=== PATIENT | male | born 1965 | race Caucasian/White ===

== ENCOUNTER 2019-07-19 00:01 | Emergency (ER) | payer OTHER, SELFPAY ==
[2019-07-19 00:07] VITALS: BP 175/75; PULSE 64; RESP 16; TEMP 36.2; O2SAT 97
--- NOTE | 2019-07-19 00:41 | ED.LOWEXIN ---
HPI - Extremity Injury (Lower) General Chief Complaint: Extremity Injury, Lower Stated Complaint: l leg redness/swelling. Time Seen by Provider: 07/19/19 00:09 History of Present Illness HPI Narrative: 54 yo morbidly obese male with h/o type 2 DM presents c/o left leg swelling. He says that he has pain and swelling in the left leg that has appeared throughout the day yesterday. He has chronic swelling, but feels that this is worse. He has previously had cellulitis in that leg. No redeness, fever, CP, SOB, trauma. No h/o DVT. Related Data Allergies Allergy/AdvReac Type Severity Reaction Status Date / Time diazepam Allergy Severe Other Verified 05/01/18 21:24 aspirin Allergy Intermediate Rash Verified 05/01/18 21:24 NSAIDS (Non-Steroidal Allergy Intermediate Rash Verified 05/01/18 21:24 Anti-Inflamma erythromycin base Allergy Mild Verified 05/01/18 21:24 latex Allergy Mild Verified 05/01/18 21:24 butorphanol Allergy Unknown Verified 12/21/16 10:31 Cephalosporins Allergy Unknown Verified 05/01/18 21:24 fentanyl Allergy Unknown Rash Verified 05/01/18 21:24 ketorolac Allergy Unknown Verified 12/21/16 10:14 morphine Allergy Unknown Verified 12/21/16 10:14 nalbuphine Allergy Unknown Verified 12/21/16 10:30 orphenadrine Allergy Unknown Verified 12/21/16 10:14 BUTORPHANOL TARTRATE Allergy Mild rash Uncoded 05/01/18 21:24 CEFADROXIL HYDRATE Allergy Mild Uncoded 05/01/18 21:24 KETOROLAC TROMETHAMINE Allergy Mild Uncoded 05/01/18 21:24 NALBUPHINE HCL Allergy Mild rash Uncoded 05/01/18 21:24 ORPHENADRINE CITRATE Allergy Mild Uncoded 05/01/18 21:24 Review of Systems Review of Systems: All systems reviewed & are unremarkable except as noted in HPI and below Constitutional: Constitutional: Denies fever(s) Cardiovascular: Cardiovascular: Denies chest pain Respiratory: Respiratory: Denies cough and Denies dyspnea Gastrointestinal: Gastrointestinal: Denies nausea and Denies vomiting Musculoskeletal: Musculoskeletal: Denies back pain Neurologic: Denies weakness Hematologic/Lymphatic: Hematologic/Lymphatic: Denies easy bleeding and Denies easy bruising PMFSH Past Medical History Medical History (Updated 07/19/19 @ 00:55 by Hever Ro MD) Type 2 diabetes mellitus Family History Family History Other Diabetes mellitus Family history of malignant neoplasm Hypertension Social History Social History Smoking status: Never smoker Alcohol intake: never Gender identity (if verbalized by the patient): Male Exam Const: General: no acute distress, alert and ill appearing chronically Nutritional Appearance: obese morbidly obese Orientation/consciousness: patient oriented x3 HENMT: Head: normal to inspection Resp: Effort & Inspection: normal respiratory effort Auscultation: clear to auscultation bilaterally Cardio: Rate: regular rate Rhythm: regular rhythm Skin: Other: No erythema, induration, warmth of LLE Neuro: General: patient oriented x3 and moves all extremities Extrem: General: edema bilateral Other: Right calf measures 59.5 cm. Left calf measures 59 cm Course Vital Signs Vital signs: Vital Signs Temperature 36.2 C L 07/19/19 00:07 Pulse Rate 64 07/19/19 00:07 Respiratory Rate 16 07/19/19 00:07 Blood Pressure 175/75 H 07/19/19 00:07 Pulse Oximetry 97 07/19/19 00:07 Temperature 36.2 C L 07/19/19 00:07 Pulse Rate 67 07/19/19 00:46 Respiratory Rate 15 07/19/19 00:46 Blood Pressure 142/62 H 07/19/19 00:46 Pulse Oximetry 96 07/19/19 00:46 MDM - Extremity Injury (Lower) MDM Narrative Medical decision making narrative: DVT, Cellulitis, CHF, dependent edema He has no exam findings to indicate cellulitis. Bedside US showed no DVT. He has no systemic symptoms to indicate CHF. His calfs are essentially the same size and given his body habitus
[2019-07-19 00:46] VITALS: BP 142/62; PULSE 67; RESP 15; O2SAT 96
[2019-07-19] MEDS: FUROSEMIDE 20 MG TABLET PO (01:00)
[2019-07-19 01:04] VITALS: BP 142/62; PULSE 63; RESP 17; O2SAT 96
== END 2019-07-19 01:00 | disposition home or self-care (01) ==
PROVIDERS: Emergency Provider Emergency Medicine
DX: R60.0 Localized edema (principal); E11.9 Type 2 diabetes mellitus without complications
CPT/HCPCS: 99283; A9270

== ENCOUNTER 2019-07-22 14:25 | Emergency (ER) | payer OTHER, SELFPAY ==
[2019-07-22] VITALS (12 sets, daily range): BP systolic 169–184; BP diastolic 87–92; PULSE 69; RESP 16; TEMP 36.6; O2SAT 94–98
--- NOTE | ~2019-07-22 | US_ITS ---
EXAMINATION: US venous doppler [facility] EXAM DATE: 07/22/2019 15:33 INDICATION: Left lower extremity pain and swelling. TECHNIQUE: Multiple grayscale, color flow and Doppler images of the left lower extremity deep venous system were obtained and reviewed. There is no prior study for comparison. FINDINGS: The left common femoral, femoral and profunda veins demonstrate normal color flow, respirat ory variation, augmentation and compressibility. Compressibility, color flow confirmed within the le ft popliteal, posterior tibial, peroneal, and greater saphenous veins. IMPRESSION: 1. No left lower extremity deep venous thrombosis. Reviewed, dictated and finalized at location A.
--- NOTE | 2019-07-22 17:24 | ED.LOWEXIN ---
HPI - Extremity Injury (Lower) General Chief Complaint: Extremity Injury, Lower <Sagrario David PA-C - Last Filed: 07/22/19 17:31> Stated Complaint: left leg pain and swelling <Sagrario David PA-C - Last Filed: 07/22/19 17:31> Time Seen by Provider: 07/22/19 14:43 <Sagrario David PA-C - Last Filed: 07/22/19 17:31> Source: patient <Sagrario David PA-C - Last Filed: 07/22/19 17:31> Mode of arrival: ambulatory <SERGE Basilio Last Filed: 07/22/19 17:31> Limitations: no limitations <Sagrario David PA-C - Last Filed: 07/22/19 17:31> History of Present Illness HPI Narrative: Patient presents with chief complaint of pain to his left lower extremity that has worsened over the past few days. Patient has chronic lower extremity edema. He was seen in this emergency department within the last week and given Lasix to help with the swelling. Patient denies any fever, warmth, erythema or warmth to the leg. He denies any chills or other signs of infection. Patient states that he thought his primary care Dr. Ramos at [facility] and told her about his symptoms and was told to come to the emergency department if his symptoms worsen. <Sagrario David PA-C - Last Filed: 07/22/19 17:31> Related Data Allergies/Adverse Reactions: Allergies Allergy/AdvReac Type Severity Reaction Status Date / Time diazepam Allergy Severe Other Verified 05/01/18 21:24 aspirin Allergy Intermediate Rash Verified 05/01/18 21:24 NSAIDS (Non-Steroidal Allergy Intermediate Rash Verified 05/01/18 21:24 Anti-Inflamma erythromycin base Allergy Mild Unknown Verified 07/22/19 14:39 latex Allergy Mild Unknown Verified 07/22/19 14:39 butorphanol Allergy Unknown Unknown Verified 07/22/19 14:39 Cephalosporins Allergy Unknown Unknown Verified 07/22/19 14:39 fentanyl Allergy Unknown Rash Verified 05/01/18 21:24 ketorolac Allergy Unknown Unknown Verified 07/22/19 14:39 morphine Allergy Unknown Unknown Verified 07/22/19 14:39 nalbuphine Allergy Unknown Unknown Verified 07/22/19 14:39 orphenadrine Allergy Unknown Unknown Verified 07/22/19 14:39 BUTORPHANOL TARTRATE Allergy Mild rash Uncoded 05/01/18 21:24 CEFADROXIL HYDRATE Allergy Mild Unknown Uncoded 07/22/19 14:39 KETOROLAC TROMETHAMINE Allergy Mild Unknown Uncoded 07/22/19 14:39 NALBUPHINE HCL Allergy Mild rash Uncoded 05/01/18 21:24 ORPHENADRINE CITRATE Allergy Mild Unknown Uncoded 07/22/19 14:39 <Sagrario David PA-C - Last Filed: 07/22/19 17:31> Review of Systems Review of Systems: Narrative: CONSTITUTIONAL: Denies fever, chills, or sweats. EYES: Denies visual changes, redness, or discharge. ENT: Denies rhinorrhea, congestion, sore throat, or otalgia. CARDIOVASCULAR: Denies chest pain, palpitations, or edema. RESPIRATORY: Denies cough or dyspnea. GASTROINTESTINAL: Denies abdominal pain, nausea, vomiting, or diarrhea. GENITOURINARY: Denies dysuria or hematuria. SKIN: Denies rash or itching. MUSCULOSKELETAL: Reports left leg pain denies back pain, joint pain, or myalgia. NEUROLOGIC: Denies headache, numbness, dizziness, or weakness. PSYCHIATRIC: Denies anxiety or depression. <Sagrario David PA-C - Last Filed: 07/22/19 17:31> PMFSH Past Medical History Medical History: Medical History (Updated 07/22/19 @ 17:30 by Sagrario David PA-C) Type 2 diabetes mellitus <Sagrario David PA-C - Last Filed: 07/22/19 17:31> Social History Social History: Social History Smoking status: Never smoker Alcohol intake: never Gender identity (if verbalized by the patient): Male <Sagrario David PA-C - Last Filed: 07/22/19 17:31> Exam Narrative: Exam Narrative: GENERAL: Well-appearing, well-nourished, and in no acute distress. Obese. Does not appear to be in any discomfort HEAD: Normocephalic, atraumatic. EYES: PERRLA and EOMI. ENT: Nares clear, no rhinorrhea or epistaxis. Mucous membranes moist. Oropharynx
== END 2019-07-22 17:37 | disposition home or self-care (01) ==
PROVIDERS: Emergency Provider Emergency Medicine
DX: R60.0 Localized edema (principal); E11.9 Type 2 diabetes mellitus without complications; Z79.82 Long term (current) use of aspirin
CPT/HCPCS: 93971; 99284

== ENCOUNTER 2019-08-06 22:10 | Emergency (ER) | payer OTHER, SELFPAY ==
--- NOTE | ~2019-08-06 | CT_ITS ---
EXAMINATION: CT abdomen pelvis w con DATE: 08/07/2019 00:52 INDICATION: Abdominal pain. Nausea and vomiting. Diarrhea. TECHNIQUE: Computed tomography (CT) of the abdomen and pelvis was performed with 100 mL Omnipaque 350 intravenous contrast. Automated exposure control and iterative reconstruction technique were employe d. The dose-length product was 1683.95 mGy-cm. COMPARISON: CT abdomen and pelvis 10/14/2017 FINDINGS: The visualized portions of the lung bases demonstrate a stable 7 mm nodule in right lower l obe, likely benign. There is a new 8 mm part solid nodule in left lower lobe. No pleural effusion. Th e heart size is normal. No pericardial effusion. The liver and spleen are normal. There are changes o f cholecystectomy. The pancreas, adrenal glands, and kidneys are normal. There are no dilated loops o f bowel. The appendix is not visualized. There are no pathologically enlarged lymph nodes. There is n o free intraperitoneal fluid. There is mild thoracolumbar spondylosis. IMPRESSION: 1. New 8 mm part-solid nodule in left lower lobe, probably benign. Noncontrast low-dose chest CT is r ecommended in 6 months. Reviewed, dictated and finalized at location A. IMPRESSION: 1. New 8 mm part-solid nodule in left lower lobe, probably benign. Noncontrast low-dose chest CT is recommended in 6 months.
[2019-08-06 22:12] VITALS: BP 154/67; PULSE 94; RESP 18; TEMP 36.4; O2SAT 98
[2019-08-06 22:53] LABS: Basophils Percent Auto 0.6 % (0.2-1.2); Eosinophils Absolute Auto 0.1 K/mm3 (0-0.3); Eosinophils Percent Auto 1.5 % (0-4.4); Hematocrit 41.5 % (42.0-52.0); Hemoglobin 13.3 g/dL (14.0-18.0); Immature Granulocyte Absolute 0.03 K/mm3 (0.00-0.031); Immature Granulocyte Percent A 0.4 % (0-0.5); Lymphocytes Absolute Auto 1.94 K/mm3 (0.9-3.2); Lymphocytes Percent Auto 27.1 % (18.3-44.2); Mean Corpuscular Hemoglobin 27.4 pg (26-34); Mean Corpuscular Volume 85.6 fl (80-100); Mean Platelet Volume 10.7 fl (7.4-10.4); Monocytes Absolute Auto 0.5 K/mm3 (0.1-0.6); Monocytes Percent Auto 6.6 % (2.6-8.5); Neutrophils Absolute Auto 4.6 K/mm3 (1.3-6.7); Neutrophils Percent Auto 63.8 % (45.5-73.1); Platelet Count Result 282 k/mm3 (150-375); Red Blood Count 4.85 M/mm3 (4.6-6.20); Red Cell Distribution Width 13.2 % (11.5-14.5); White Blood Count 7.2 K/mm3 (4.5-10.0)
[2019-08-06 23:00] LABS: Add Urine Microscopic? YES; Appearance Urine Clear (Clear); Bilirubin Urine Negative (Negative); Blood Urine Negative (Negative); Color Urine Yellow (Yellow); Glucose Urine UA 3+ mg/dL (Negative); Ketones Urine Negative (Negative); Leukocyte Esterase Ur Negative LEU/UL (Negative); Nitrate Urine Negative (Negative); Protein Urine Negative (Negative); RBC Urine 0-2 /hpf (0-2); Specific Grav Ur 1.027 (1.001-1.035); Squamous Epithelial Cell Urine Occasional /hpf (Few); Urobilinogen Urine Negative mg/dL (<2.0); WBC Urine 0-3 /hpf
[2019-08-06 23:03] LABS: Alanine Aminotransferase 27 U/L (4-50); Albumin Level 4.2 g/dL (3.5-5.1); Alkaline Phosphatase 118 U/L (38-126); Aspartate Amino Transferase 26 U/L (17-59); Bilirubin,Total 0.9 mg/dL (0.2-1.3); Blood Urea Nitrogen 14 mg/dL (9-20); Calcium 8.7 mg/dL (8.4-10.2); Carbon Dioxide 30 mmol/L (22-30); Chloride 92 mmol/L (98-107); Estimated CRCL calculation 188 ml/min; Estimated Glomerular Filt Rate > 60; Glucose 367 mg/dL (75-110); Lipase 177 U/L (23-300); Potassium 4.4 mmol/L (3.4-5.0); Sodium 131 mmol/L (137-145)
[2019-08-06 23:51] VITALS: BP 141/72; PULSE 91; RESP 16; TEMP 36.8; O2SAT 95
--- NOTE | 2019-08-07 00:24 | ED.ABDPAIN ---
HPI - Abdominal Pain General Chief Complaint: Abdominal Pain Stated Complaint: PANCREATIC PROBLEMS Time Seen by Provider: 08/06/19 23:56 Source: patient Mode of arrival: ambulatory Limitations: no limitations History of Present Illness HPI narrative: This patient is a 54 yo male who presents with c/o mid abdominal pain . He states his pain started today yesterday at 5 pm. He reports his pain is localized . He has associated nausea and diarrhea with pain. He has taken bentyl without relief of his pain. MD elicited complaint: abdominal pain Related Data Home Medications Medication Instructions Recorded Confirmed albuterol sulfate INHALATION 08/06/19 allopurinol 08/06/19 08/06/19 atorvastatin 08/06/19 citalopram mg 08/06/19 cyclobenzaprine mg 08/06/19 dicyclomine mg 08/06/19 hydrocodone-acetaminophen 08/06/19 insulin lispro [Admelog SoloStar unit SUBCUT 08/06/19 U-100 Insulin] lisinopril 08/06/19 metformin mg 08/06/19 Allergies Allergy/AdvReac Type Severity Reaction Status Date / Time diazepam Allergy Severe Other Verified 08/06/19 22:23 aspirin Allergy Intermediate Rash Verified 08/06/19 22:23 NSAIDS (Non-Steroidal Allergy Intermediate Rash Verified 08/06/19 22:23 Anti-Inflamma erythromycin base Allergy Mild Unknown Verified 08/06/19 22:23 latex Allergy Mild Unknown Verified 08/06/19 22:23 butorphanol Allergy Unknown Unknown Verified 08/06/19 22:23 Cephalosporins Allergy Unknown Unknown Verified 08/06/19 22:23 fentanyl Allergy Unknown Rash Verified 08/06/19 22:23 ketorolac Allergy Unknown Unknown Verified 08/06/19 22:23 morphine Allergy Unknown Unknown Verified 08/06/19 22:23 nalbuphine Allergy Unknown Unknown Verified 08/06/19 22:23 orphenadrine Allergy Unknown Unknown Verified 08/06/19 22:23 BUTORPHANOL TARTRATE Allergy Mild rash Uncoded 08/06/19 22:23 CEFADROXIL HYDRATE Allergy Mild Unknown Uncoded 08/06/19 22:23 KETOROLAC TROMETHAMINE Allergy Mild Unknown Uncoded 08/06/19 22:23 NALBUPHINE HCL Allergy Mild rash Uncoded 08/06/19 22:23 ORPHENADRINE CITRATE Allergy Mild Unknown Uncoded 08/06/19 22:23 Review of Systems Review of Systems: All systems reviewed & are unremarkable except as noted in HPI and below Constitutional: Constitutional: Denies chills and Denies fever(s) Cardiovascular: Cardiovascular: Denies chest pain Respiratory: Respiratory: Denies cough Gastrointestinal: Gastrointestinal: Reports abdominal pain, Reports diarrhea and Reports nausea Genitourinary: Genitourinary: Denies hematuria, Denies dysuria and Denies urinary frequency [facility] Past Medical History Medical History (Updated 08/07/19 @ 01:52 by Tea Strange MD) Type 2 diabetes mellitus Surgical History Surgical History (Updated 08/07/19 @ 00:26 by Tea Strange MD) Hx of cholecystectomy Social History Social History Smoking status: Never smoker Alcohol intake: never Gender identity (if verbalized by the patient): Male Exam Narrative: Exam Narrative: GENERAL: Well-appearing, well-nourished, and in no acute distress. HEAD: Normocephalic, atraumatic EYES: PERRLA and EOMI, conjunctiva clear without discharge THROAT:Mucous membranes moist, Oropharynx normal without erythema, exudate, peritonsillar swelling or fluctuance NECK: Supple, without lymphadenopathy or mass RESPIRATORY: No respiratory distress, Airway patent, Respirations non-labored, Clear to auscultation without rales, rhonchi or wheeze HEART: Regular rate and rhythm. No murmur heard. Normal peripheral pulses. ABDOMEN: Soft, mid abdomen tenderness with guarding at location, nondistended, normal active bowel sounds. No masses. EXTREMITIES: No edema, normal strength with full range of motion. SKIN: Warm, dry, normal color without rash NEURO: Alert and oriented x3. CN 2-12 grossly intact. No focal deficits. PSYCH: Normal mood and affect. Const: General: alert N
--- NOTE | 2019-08-07 01:07 | PC.NURSE ---
Patient states he is still hurting and states I usually get 1mg-2mg Dilaudid to help with the pain. SAGRARIO Strange was notified.
[2019-08-07 01:13] VITALS: BP 146/77; PULSE 87; RESP 14; O2SAT 98
[2019-08-07 02:10] VITALS: BP 131/75; PULSE 90; RESP 14; TEMP 36.3; O2SAT 95
== END 2019-08-07 02:13 | disposition home or self-care (01) ==
PROVIDERS: Emergency Provider General Practice
DX: R10.12 Left upper quadrant pain (principal); E11.65 Type 2 diabetes mellitus with hyperglycemia; Z79.84 Long term (current) use of oral hypoglycemic drugs; Z79.4 Long term (current) use of insulin
CPT/HCPCS: 36415; 74177; 80053; 81001; 83690; 85025; 99284; Q9967

== ENCOUNTER 2019-10-22 01:03 | Emergency (ER) | payer OTHER, SELFPAY ==
--- NOTE | 2019-10-22 01:07 | ED.LOWEXIN ---
HPI - Extremity Injury (Lower) General Chief Complaint: Extremity Injury, Lower Stated Complaint: Leg pain Time Seen by Provider: 10/22/19 01:07 History of Present Illness HPI Narrative: He presents c/o burning bilateral lower leg pain. He says that this started earlier this evening. He has known neuropathy and chronic pain issues. He reports that he took his home pain medications which did not help and the only thing that helps the pain is a shot of dilaudid. Related Data Home Medications Medication Instructions Recorded Confirmed albuterol sulfate INHALATION 08/06/19 allopurinol 08/06/19 08/06/19 atorvastatin 08/06/19 citalopram mg 08/06/19 cyclobenzaprine mg 08/06/19 dicyclomine mg 08/06/19 hydrocodone-acetaminophen 08/06/19 insulin lispro [Admelog SoloStar unit SUBCUT 08/06/19 U-100 Insulin] lisinopril 08/06/19 metformin mg 08/06/19 Allergies Allergy/AdvReac Type Severity Reaction Status Date / Time diazepam Allergy Severe Other Verified 08/06/19 22:23 aspirin Allergy Intermediate Rash Verified 08/06/19 22:23 NSAIDS (Non-Steroidal Allergy Intermediate Rash Verified 08/06/19 22:23 Anti-Inflamma erythromycin base Allergy Mild Unknown Verified 08/06/19 22:23 latex Allergy Mild Unknown Verified 08/06/19 22:23 butorphanol Allergy Unknown Unknown Verified 08/06/19 22:23 Cephalosporins Allergy Unknown Unknown Verified 08/06/19 22:23 fentanyl Allergy Unknown Rash Verified 08/06/19 22:23 ketorolac Allergy Unknown Unknown Verified 08/06/19 22:23 morphine Allergy Unknown Unknown Verified 08/06/19 22:23 nalbuphine Allergy Unknown Unknown Verified 08/06/19 22:23 orphenadrine Allergy Unknown Unknown Verified 08/06/19 22:23 BUTORPHANOL TARTRATE Allergy Mild rash Uncoded 08/06/19 22:23 CEFADROXIL HYDRATE Allergy Mild Unknown Uncoded 08/06/19 22:23 KETOROLAC TROMETHAMINE Allergy Mild Unknown Uncoded 08/06/19 22:23 NALBUPHINE HCL Allergy Mild rash Uncoded 08/06/19 22:23 ORPHENADRINE CITRATE Allergy Mild Unknown Uncoded 08/06/19 22:23 Review of Systems Review of Systems: All systems reviewed & are unremarkable except as noted in HPI and below PMFSH Past Medical History Medical History Type 2 diabetes mellitus Surgical History Surgical History Hx of cholecystectomy Social History Social History Smoking status: Never smoker Alcohol intake: never Gender identity (if verbalized by the patient): Male Exam Const: General: no acute distress and alert Nutritional Appearance: obese Orientation/consciousness: patient oriented x3 HENMT: Head: normal to inspection Resp: Effort & Inspection: normal respiratory effort Auscultation: clear to auscultation bilaterally Cardio: Rate: regular rate Rhythm: regular rhythm Skin: General skin exam: normal color Rashes: no rashes Wounds: no wounds Neuro: General: patient oriented x3 and moves all extremities Speech: normal speech Extrem: General: no edema Course Course Emergency Course: I discussed him with the physician on-call for his PCP. They have no specific recommendations for treatment. they will get in touch with him. Vital Signs Vital signs: Vital Signs Temperature 36.7 C 10/22/19 01:11 Pulse Rate 88 10/22/19 01:11 Respiratory Rate 18 10/22/19 01:11 Blood Pressure 161/90 H 10/22/19 01:11 Pulse Oximetry 100 10/22/19 01:11 Temperature 36.7 C 10/22/19 01:11 Pulse Rate 73 10/22/19 03:27 Respiratory Rate 18 10/22/19 03:27 Blood Pressure 151/82 H 10/22/19 03:27 Pulse Oximetry 95 10/22/19 03:27 Discharge Plan Discharge Clinical Impression: Neuropathic pain, leg, bilateral Patient Disposition: Home, Self-Care Condition: Stable Instructions: Peripheral Neuropathy (ED) Prescriptions: No Action cyclobenzaprine 10 mg tablet
[2019-10-22 01:11] VITALS: BP 161/90; PULSE 88; RESP 18; TEMP 36.7; O2SAT 100
[2019-10-22 03:27] VITALS: BP 151/82; PULSE 73; RESP 18; O2SAT 95
== END 2019-10-22 02:57 | disposition home or self-care (01) ==
PROVIDERS: Emergency Provider Emergency Medicine
DX: E11.40 Type 2 diabetes mellitus with diabetic neuropathy, unspecified (principal); Z79.4 Long term (current) use of insulin; Z79.84 Long term (current) use of oral hypoglycemic drugs
CPT/HCPCS: 99282

== ENCOUNTER 2019-10-24 15:34 | Emergency (ER) | payer OTHER, SELFPAY ==
--- NOTE | ~2019-10-24 | CT_ITS ---
EXAMINATION: CT lumbar spine wo con DATE: 10/24/2019 18:03 INDICATION: Low back pain after fall TECHNIQUE: Computed tomography (CT) of the lumbar spine was performed without intravenous contrast. T he dose-length product was 1567.85 mGy-cm. Automated exposure control and iterative reconstruction te kileyque were employed. COMPARISON: None FINDINGS: Vertebral body heights are preserved. Normal lumbar lordosis. There is mild lower lumbar fa cet degenerative change. No acute fracture or traumatic malalignment. Sacrum is unremarkable. No sign ificant paraspinal soft tissue abnormality. Mild disc narrowing at L5-S1. IMPRESSION: 1. No acute abnormality of the lumbar spine. Reviewed, dictated and finalized at location A.
--- NOTE | ~2019-10-24 | XR_ITS ---
XR shoulder RT min 2V 10/24/2019 17:51 Indication: Right shoulder pain Procedure: 6 views right shoulder Comparison: No prior studies for comparison. Findings: There is mild polyarticular osteoarthritis. No fracture or traumatic malalignment. No focal soft tissue abnormality. Visualized lung parenchyma unremarkable. Impression: 1: Mild polyarticular osteoarthritis of the right shoulder. Reviewed, dictated and finalized at location A. Impression: 1: Mild polyarticular osteoarthritis of the right shoulder.
[2019-10-24 15:38] VITALS: BP 113/58; PULSE 76; RESP 20; TEMP 36.8; O2SAT 99
--- NOTE | 2019-10-24 17:28 | ED.FALL ---
HPI - Fall General Chief Complaint: Fall <Deepika Salazar PA-C - Last Filed: 10/24/19 19:08> Stated Complaint: fall, shoulder, back apin <Deepika Salazar PA-C - Last Filed: 10/24/19 19:08> Time Seen by Provider: 10/24/19 16:46 <Deepika Salazar PA-C - Last Filed: 10/24/19 19:08> Source: patient <SERGE Hu Last Filed: 10/24/19 19:08> Mode of arrival: ambulatory <SERGE Hu Last Filed: 10/24/19 19:08> Limitations: no limitations <SERGE Hu Last Filed: 10/24/19 19:08> History of Present Illness HPI Narrative: This is a 54-year-old male that presents to the emergency department after a fall yesterday. Reports he was walking into his doctor's office, and tripped and fell forward and caught himself with his wrists. Reports then landing on his side. Reports since he has had right shoulder and low back pain. Worse with movement and relieved with rest. Took his home pain medication with little relief. Denies saddle anesthesia, bowel/bladder incontinence, or numbness. <Deepika Salazar PA-C - Last Filed: 10/24/19 19:08> Related Data Home Medications: Home Medications Medication Instructions Recorded Confirmed allopurinol 08/06/19 08/06/19 atorvastatin 08/06/19 citalopram mg 08/06/19 cyclobenzaprine mg 08/06/19 dicyclomine mg 08/06/19 hydrocodone-acetaminophen 08/06/19 insulin lispro [Admelog SoloStar unit SUBCUT 08/06/19 U-100 Insulin] lisinopril 08/06/19 metformin mg 08/06/19 <SERGE Hu Last Filed: 10/24/19 19:08> Allergies/Adverse Reactions: Allergies Allergy/AdvReac Type Severity Reaction Status Date / Time diazepam Allergy Severe Other Verified 10/24/19 16:41 aspirin Allergy Intermediate Rash Verified 10/24/19 16:41 NSAIDS (Non-Steroidal Allergy Intermediate Rash Verified 10/24/19 16:41 Anti-Inflamma erythromycin base Allergy Mild Unknown Verified 10/24/19 16:41 latex Allergy Mild Unknown Verified 10/24/19 16:41 butorphanol Allergy Unknown Unknown Verified 10/24/19 16:41 Cephalosporins Allergy Unknown Unknown Verified 10/24/19 16:41 fentanyl Allergy Unknown Rash Verified 10/24/19 16:41 ketorolac Allergy Unknown Unknown Verified 10/24/19 16:41 morphine Allergy Unknown Unknown Verified 10/24/19 16:41 nalbuphine Allergy Unknown Unknown Verified 10/24/19 16:41 orphenadrine Allergy Unknown Unknown Verified 10/24/19 16:41 BUTORPHANOL TARTRATE Allergy Mild rash Uncoded 08/06/19 22:23 CEFADROXIL HYDRATE Allergy Mild Unknown Uncoded 08/06/19 22:23 KETOROLAC TROMETHAMINE Allergy Mild Unknown Uncoded 08/06/19 22:23 NALBUPHINE HCL Allergy Mild rash Uncoded 08/06/19 22:23 ORPHENADRINE CITRATE Allergy Mild Unknown Uncoded 08/06/19 22:23 <Deepika Salazar PA-C - Last Filed: 10/24/19 19:08> Review of Systems Review of Systems: Narrative: CONSTITUTIONAL: Denies fever EYES: Denies visual changes GASTROINTESTINAL: Denies vomiting MUSCULOSKELETAL: Reports back pain, joint pain, and myalgia. NEUROLOGIC: Denies numbness, or weakness. <Deepika Salazar PA-C - Last Filed: 10/24/19 19:08> All systems reviewed & are unremarkable except as noted in HPI and below <Deepika Salazar PA-C - Last Filed: 10/24/19 19:08> [facility] Past Medical History Medical History: Medical History (Updated 10/24/19 @ 19:03 by Deepika Salazar PA-C) History of gout History of hyperlipidemia History of hypertension Type 2 diabetes mellitus <Deepika Salazar PA-C - Last Filed: 10/24/19 19:08> Surgical History Surgical History: Surgical History Hx of cholecystectomy <Deepika Salazar PA-C - Last Filed: 10/24/19 19:08> Social History Social History: Social History Smoking status: Never smoker Alcohol intake: never Gender identity (if verbalized by the patient): Male <Deepika Salazar PA-C
--- NOTE | 2019-10-24 17:46 | PC.NURSE ---
To xray at this time
[2019-10-24 19:22] VITALS: BP 148/100; PULSE 64; RESP 16; TEMP 36.6; O2SAT 97
== END 2019-10-24 19:23 | disposition home or self-care (01) ==
PROVIDERS: Emergency Provider Emergency Medicine
DX: S39.92XA Unspecified injury of lower back, initial encounter (principal); M25.511 Pain in right shoulder; M10.9 Gout, unspecified; E78.5 Hyperlipidemia, unspecified; I10 Essential (primary) hypertension; E11.9 Type 2 diabetes mellitus without complications; M19.011 Primary osteoarthritis, right shoulder; Z79.84 Long term (current) use of oral hypoglycemic drugs; Z79.4 Long term (current) use of insulin; W01.0XXA Fall on same level from slipping, tripping and stumbling without subsequent striking against object, initial encounter
CPT/HCPCS: 72131; 73030; 96372; 99284; J1170

== ENCOUNTER 2019-12-28 15:10 | Emergency (ER) | payer OTHER, SELFPAY ==
--- NOTE | ~2019-12-28 | XR_ITS ---
EXAMINATION: XR hip RT 2V w AP pelvis DATE: 12/28/2019 15:51 INDICATION: Right hip pain TECHNIQUE: Anteroposterior view of the pelvis and anteroposterior and frog-leg lateral views of the r ight hip were obtained. COMPARISON: None. FINDINGS: Evaluation is somewhat limited by underpenetration with poor contrast resulting from portable techniq ue and patient body habitus. Alignment is normal. No evident fracture. Mild bilateral hip osteoarthri tis. IMPRESSION: 1. Mild bilateral hip osteoarthritis. No acute osseous abnormality although assessment of fine bone d etail is limited due to patient body habitus. Reviewed, dictated and finalized at location A. IMPRESSION: 1. Mild bilateral hip osteoarthritis. No acute osseous abnormality although ass essment of fine bone detail is limited due to patient body habitus.
[2019-12-28 15:18] VITALS: BP 143/72; PULSE 76; RESP 20; TEMP 36.5; O2SAT 100
--- NOTE | 2019-12-28 15:43 | ED.LOWEXIN ---
HPI - Extremity Injury (Lower) General Chief Complaint: Extremity Injury, Lower Stated Complaint: hip pain Time Seen by Provider: 12/28/19 15:24 History of Present Illness HPI Narrative: 54 yo male with h/o chronic pain presnets with right hip pain. He reports that he has severe pain in the right hip since this morning that is preventing him from being able to walk. No trauma. Denies any other symptoms. Related Data Home Medications Medication Instructions Recorded Confirmed allopurinol 08/06/19 08/06/19 atorvastatin 08/06/19 citalopram mg 08/06/19 cyclobenzaprine mg 08/06/19 dicyclomine mg 08/06/19 hydrocodone-acetaminophen 08/06/19 insulin lispro [Admelog SoloStar unit SUBCUT 08/06/19 U-100 Insulin] lisinopril 08/06/19 metformin mg 08/06/19 Allergies Allergy/AdvReac Type Severity Reaction Status Date / Time diazepam Allergy Severe Other Verified 12/28/19 15:23 aspirin Allergy Intermediate Rash Verified 12/28/19 15:23 NSAIDS (Non-Steroidal Allergy Intermediate Rash Verified 12/28/19 15:23 Anti-Inflamma erythromycin base Allergy Mild Unknown Verified 12/28/19 15:23 latex Allergy Mild Unknown Verified 12/28/19 15:23 butorphanol Allergy Unknown Unknown Verified 12/28/19 15:23 Cephalosporins Allergy Unknown Unknown Verified 12/28/19 15:23 fentanyl Allergy Unknown Rash Verified 12/28/19 15:23 ketorolac Allergy Unknown Unknown Verified 12/28/19 15:23 morphine Allergy Unknown Unknown Verified 12/28/19 15:23 nalbuphine Allergy Unknown Unknown Verified 12/28/19 15:23 orphenadrine Allergy Unknown Unknown Verified 12/28/19 15:23 Review of Systems Review of Systems: All systems reviewed & are unremarkable except as noted in HPI and below PMFSH Past Medical History Medical History History of gout History of hyperlipidemia History of hypertension Type 2 diabetes mellitus Surgical History Surgical History Hx of cholecystectomy Family History Family History Other Diabetes mellitus Family history of malignant neoplasm Hypertension Social History Social History Smoking status: Never smoker Alcohol intake: never Gender identity (if verbalized by the patient): Male Exam Const: General: no acute distress and alert Nutritional Appearance: obese Orientation/consciousness: patient oriented x3 HENMT: Head: normal to inspection Resp: Effort & Inspection: normal respiratory effort Auscultation: clear to auscultation bilaterally Cardio: Rate: regular rate Rhythm: regular rhythm Skin: General skin exam: normal color Neuro: General: patient oriented x3, moves all extremities and CN's II-XI intact bilaterally Speech: normal speech Gait exam (Neuro): Normal gait present Extrem: General: normal to inspection Other: Grossly normal extremity exm Course Vital Signs Vital signs: Vital Signs Temperature 36.5 C 12/28/19 15:18 Pulse Rate 76 12/28/19 15:18 Respiratory Rate 20 12/28/19 15:18 Blood Pressure 143/72 H 12/28/19 15:18 Pulse Oximetry 100 12/28/19 15:18 Temperature 36.5 C 12/28/19 15:18 Pulse Rate 80 12/28/19 17:28 Respiratory Rate 20 12/28/19 17:28 Blood Pressure 142/67 H 12/28/19 17:28 Pulse Oximetry 99 12/28/19 17:28 MDM - Extremity Injury (Lower) MDM Narrative Medical decision making narrative: Negative x-rays. History of opioid abuse and refusing to walk due to pain. Allergies listed to most non-opioid analgesics. I will given single dose of ketamine. Pain completely resolved and ambulating without difficulty. Imaging Data Radiologist's impression: ITS Impressions Hip/Pelvis X-Ray 12/28/19 15:57 IMPRESSION: 1. Mild bilateral hip osteoarthritis. No acute osseous abnormality although assessment of fine bon
[2019-12-28] MEDS: KETAMINE HCL (*CRX) 500 MG/10 ML VIAL 100 MG IM (16:17)
[2019-12-28 17:28] VITALS: BP 142/67; PULSE 80; RESP 20; O2SAT 99
[2019-12-28] MEDS: ONDANSETRON HCL ODT 4 MG TABLET PO (17:28)
== END 2019-12-28 17:30 | disposition home or self-care (01) ==
PROVIDERS: Emergency Provider Emergency Medicine
DX: M25.551 Pain in right hip (principal); M10.9 Gout, unspecified; E78.5 Hyperlipidemia, unspecified; I10 Essential (primary) hypertension; E11.9 Type 2 diabetes mellitus without complications; Z79.4 Long term (current) use of insulin; M16.0 Bilateral primary osteoarthritis of hip
CPT/HCPCS: 73140; 73502; 96372; 99283; A9270

== ENCOUNTER 2020-02-28 20:41 | Emergency (ER) | payer OTHER, SELFPAY ==
--- NOTE | ~2020-02-28 | XR_ITS ---
EXAMINATION: XR chest 1V portable DATE: 02/28/2020 23:25 INDICATION: Pneumonia 2 weeks prior presenting with shortness of breath and cough TECHNIQUE: frontal view of the chest was obtained. COMPARISON: Chest radiograph dated 05/01/2018 FINDINGS: The lungs are clear with no focal airspace opacities, pulmonary edema, pleural effusion or pneumothor ax. The cardiomediastinal silhouette is normal. Visualized bones and soft tissues are unremarkable. IMPRESSION: 1. No acute cardiopulmonary disease. Reviewed, dictated and finalized at location A. 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
--- NOTE | 2020-02-28 20:45 | PC.NURSE ---
mothers name lynsey [phone]
[2020-02-28 21:13] VITALS: BP 149/69; PULSE 77; RESP 18; TEMP 36.2; O2SAT 98
--- NOTE | 2020-02-28 23:35 | ED.URI ---
HPI - URI/Sore Throat General Chief Complaint: Upper Respiratory Infection Stated Complaint: headache, sob, nausea Time Seen by Provider: 02/28/20 23:15 History of Present Illness HPI Narrative: 54 yo male w/ DM, HTN, gout, chronic pain presents to the ED for URI. He says that he has had a TERAN for a few days. Now accompanied by cough, and SOB. He thinks that he may have been exposed to COVID-19 at [facility]. Related Data Home Medications Medication Instructions Recorded Confirmed allopurinol 08/06/19 08/06/19 atorvastatin 08/06/19 citalopram mg 08/06/19 cyclobenzaprine mg 08/06/19 dicyclomine mg 08/06/19 hydrocodone-acetaminophen 08/06/19 insulin lispro [Admelog SoloStar unit SUBCUT 08/06/19 U-100 Insulin] lisinopril 08/06/19 metformin mg 08/06/19 Allergies Allergy/AdvReac Type Severity Reaction Status Date / Time diazepam Allergy Severe Other Verified 02/28/20 20:49 aspirin Allergy Intermediate Rash Verified 02/28/20 20:49 NSAIDS (Non-Steroidal Allergy Intermediate Rash Verified 02/28/20 20:49 Anti-Inflamma erythromycin base Allergy Mild Unknown Verified 02/28/20 20:49 latex Allergy Mild Unknown Verified 02/28/20 20:49 butorphanol Allergy Unknown Unknown Verified 02/28/20 20:49 Cephalosporins Allergy Unknown Unknown Verified 02/28/20 20:49 fentanyl Allergy Unknown Rash Verified 02/28/20 20:49 ketorolac Allergy Unknown Unknown Verified 02/28/20 20:49 morphine Allergy Unknown Unknown Verified 02/28/20 20:49 nalbuphine Allergy Unknown Unknown Verified 02/28/20 20:49 orphenadrine Allergy Unknown Unknown Verified 02/28/20 20:49 Review of Systems Review of Systems: All systems reviewed & are unremarkable except as noted in HPI and below Constitutional: Constitutional: Denies fever(s) ENT: Denies sore throat Cardiovascular: Cardiovascular: Denies chest pain Respiratory: Respiratory: Reports cough and Reports dyspnea Gastrointestinal: Gastrointestinal: Denies abdominal pain and Denies nausea Genitourinary: Genitourinary: Denies dysuria Musculoskeletal: Musculoskeletal: Reports back pain Neurologic: Reports headache(s) PMFSH Past Medical History Medical History History of gout History of hyperlipidemia History of hypertension Type 2 diabetes mellitus Surgical History Surgical History Hx of cholecystectomy Family History Family History Other Diabetes mellitus Family history of malignant neoplasm Hypertension Social History Social History Smoking status: Never smoker Alcohol intake: never Gender identity (if verbalized by the patient): Male Exam Const: General: alert Nutritional Appearance: obese Orientation/consciousness: patient oriented x3 HENMT: Head: normal to inspection Ears: TM's normal bilaterally Mouth: Yes moist mucous membranes Eyes: Conjunctivae: conjunctivae normal Pupils: Equal, round and reactive pupils present EOM: EOMs intact bilaterally Neck: Neck: normal visual inspection Resp: Effort & Inspection: normal respiratory effort Auscultation: clear to auscultation bilaterally Cardio: Rate: regular rate Rhythm: regular rhythm GI: GI Palp: Yes Soft to palpation and No Tenderness to palpation present (GI) Skin: Other: Stasis changes of BLE Neuro: General: patient oriented x3, moves all extremities, no focal motor deficits and CN's II-XI intact bilaterally Speech: normal speech Gait exam (Neuro): Normal gait present Extrem: General: edema bilateral (1+) Course Vital Signs Vital signs: Vital Signs Temperature 36.2 C L 02/28/20 21:13 Pulse Rate 77 02/28/20 21:13 Respiratory Rate 18 02/28/20 21:13 Blood Pressure 149/69 H 02/28/20 21:13 Pulse Oximetry 98 02/28/20 21:13 Temperature 36.2 C
[2020-02-29 00:11] LABS: Basophils Percent Auto 0.4 % (0.2-1.2); Eosinophils Absolute Auto 0.1 K/mm3 (0-0.3); Eosinophils Percent Auto 2.4 % (0-4.4); Hematocrit 39.6 % (42.0-52.0); Hemoglobin 12.6 g/dL (14.0-18.0); Immature Granulocyte Absolute 0.01 K/mm3 (0.00-0.031); Immature Granulocyte Percent A 0.2 % (0-0.5); Lymphocytes Absolute Auto 1.62 K/mm3 (0.9-3.2); Lymphocytes Percent Auto 30.2 % (18.3-44.2); Mean Corpuscular HGB Conc 31.8 g/dl (32-36); Mean Corpuscular Hemoglobin 26.1 pg (26-34); Mean Corpuscular Volume 82.2 fl (80-100); Mean Platelet Volume 10.1 fl (7.4-10.4); Monocytes Absolute Auto 0.4 K/mm3 (0.1-0.6); Monocytes Percent Auto 7.5 % (2.6-8.5); Neutrophils Absolute Auto 3.2 K/mm3 (1.3-6.7); Neutrophils Percent Auto 59.3 % (45.5-73.1); Platelet Count Result 253 k/mm3 (150-375); Red Blood Count 4.82 M/mm3 (4.6-6.20); Red Cell Distribution Width 12.8 % (11.5-14.5); White Blood Count 5.4 K/mm3 (4.5-10.0)
[2020-02-29 00:26] LABS: Alanine Aminotransferase 26 U/L (4-50); Alkaline Phosphatase 86 U/L (38-126); Anion Gap 8 mmol/L (8-16); Aspartate Amino Transferase 27 U/L (17-59); Blood Urea Nitrogen 14 mg/dL (9-20); Calcium 9.4 mg/dL (8.4-10.2); Carbon Dioxide 30 mmol/L (22-30); Chloride 95 mmol/L (98-107); Estimated CRCL calculation 220 ml/min; Estimated Glomerular Filt Rate > 60; Glucose 328 mg/dL (75-110); Sodium 133 mmol/L (137-145)
[2020-02-29 00:46] VITALS: BP 137/62; PULSE 84; RESP 18; O2SAT 98
== END 2020-02-29 00:47 | disposition home or self-care (01) ==
PROVIDERS: Emergency Provider Emergency Medicine
DX: J40 Bronchitis, not specified as acute or chronic (principal); E11.9 Type 2 diabetes mellitus without complications; Z79.4 Long term (current) use of insulin; M10.9 Gout, unspecified; E78.5 Hyperlipidemia, unspecified; I10 Essential (primary) hypertension
CPT/HCPCS: 36415; 71045; 80053; 85025; 99283

== ENCOUNTER 2020-04-15 18:44 | Emergency (ER) | payer OTHER, SELFPAY ==
[2020-04-15 18:47] VITALS: BP 183/67; PULSE 77; RESP 18; TEMP 36.5; O2SAT 100
--- NOTE | 2020-04-15 19:54 | ED.BACK ---
HPI - Back Pain/Injury General Chief Complaint: Back Pain/Injury Stated Complaint: back pain Time Seen by Provider: 04/15/20 19:47 Source: patient Mode of arrival: ambulatory Limitations: no limitations History of Present Illness HPI Narrative: A 54-year-old male [facility] with complaints of an exacerbation of low back pain. Patient does state that he has had some low back issues is seeking something for his pain. He states at home he is taking 10 mg hydrocodone. These are prescribed by his pain management doctor. He states that his pain management doctor said it is okay with me if you go to the ER get more pain meds . He does note that he usually just comes and receives a shot goes on his way. Related Data Home Medications Medication Instructions Recorded Confirmed allopurinol 08/06/19 08/06/19 atorvastatin 08/06/19 citalopram mg 08/06/19 cyclobenzaprine mg 08/06/19 dicyclomine mg 08/06/19 hydrocodone-acetaminophen 08/06/19 insulin lispro [Admelog SoloStar unit SUBCUT 08/06/19 U-100 Insulin] lisinopril 08/06/19 metformin mg 08/06/19 Allergies Allergy/AdvReac Type Severity Reaction Status Date / Time diazepam Allergy Severe Other Verified 02/28/20 20:49 aspirin Allergy Intermediate Rash Verified 02/28/20 20:49 NSAIDS (Non-Steroidal Allergy Intermediate Rash Verified 02/28/20 20:49 Anti-Inflamma erythromycin base Allergy Mild Unknown Verified 02/28/20 20:49 latex Allergy Mild Unknown Verified 02/28/20 20:49 butorphanol Allergy Unknown Unknown Verified 02/28/20 20:49 Cephalosporins Allergy Unknown Unknown Verified 02/28/20 20:49 fentanyl Allergy Unknown Rash Verified 02/28/20 20:49 ketorolac Allergy Unknown Unknown Verified 02/28/20 20:49 morphine Allergy Unknown Unknown Verified 02/28/20 20:49 nalbuphine Allergy Unknown Unknown Verified 02/28/20 20:49 orphenadrine Allergy Unknown Unknown Verified 02/28/20 20:49 Review of Systems Review of Systems: Narrative: CONSTITUTIONAL: Denies fever, chills, or sweats. EYES: Denies visual changes, redness, or discharge. ENT: Denies rhinorrhea, congestion, sore throat, or otalgia. CARDIOVASCULAR: Denies chest pain, palpitations, or edema. RESPIRATORY: Denies cough or dyspnea. GASTROINTESTINAL: Denies abdominal pain, nausea, vomiting, or diarrhea. GENITOURINARY: Denies dysuria or hematuria. SKIN: Denies rash or itching. MUSCULOSKELETAL: Denies joint pain, or myalgia. Exacerbation of chronic low back pain. NEUROLOGIC: Denies headache, numbness, dizziness, or weakness. PSYCHIATRIC: Denies anxiety or depression. [facility] Past Medical History Medical History (Updated 04/15/20 @ 19:58 by Michael Dela Cruz DO) History of gout History of hyperlipidemia History of hypertension Type 2 diabetes mellitus Surgical History Surgical History Hx of cholecystectomy Family History Family History Other Diabetes mellitus Family history of malignant neoplasm Hypertension Social History Social History Smoking status: Never smoker Alcohol intake: never Gender identity (if verbalized by the patient): Male Exam Narrative: Exam Narrative: GENERAL: Well-appearing, well-nourished, and in no acute distress. Morbid obesity HEAD: Normocephalic, atraumatic. EYES: PERRLA and EOMI. ENT: Nares clear, no rhinorrhea or epistaxis. Mucous membranes moist. Oropharynx without tonsillar hypertrophy exudate or other lesions. Bilateral TMs pearly sargent nonbulging NECK: Supple. No adenopathy or masses. No carotid bruits or JVD CHEST: Clear to auscultation. No respiratory distress. No wheezes rales or rhonchi HEART: Regular rate and rhythm. No murmur heard. Normal peripheral pulses. ABDOMEN: Soft, nontender, nondistended, normal active bowel sounds. EXTREMITIES: Normal range of motion.
--- NOTE | 2020-04-15 20:10 | PC.NURSE ---
pt left after pleasantly refusing ordered medications. pt unhappy with choice of medication. provider aware
== END 2020-04-15 20:10 | disposition home or self-care (01) ==
PROVIDERS: Emergency Provider Emergency Medicine
DX: M54.5 Low back pain (principal); G89.29 Other chronic pain; S39.012A Strain of muscle, fascia and tendon of lower back, initial encounter; E66.01 Morbid (severe) obesity due to excess calories; Z68.44 Body mass index [BMI] 60.0-69.9, adult; E11.9 Type 2 diabetes mellitus without complications; E78.5 Hyperlipidemia, unspecified; I10 Essential (primary) hypertension; Z79.4 Long term (current) use of insulin; X58.XXXA Exposure to other specified factors, initial encounter
CPT/HCPCS: 99281

== ENCOUNTER 2020-11-04 15:46 | Emergency (ER) | payer OTHER, SELFPAY ==
[2020-11-04 15:59] VITALS: BP 139/82; PULSE 88; RESP 16; TEMP 37; O2SAT 95
--- NOTE | 2020-11-04 18:17 | PC.NURSE ---
Pt up out of wheelchair and ambulates to intake desk. Reports he is tired of waiting and is ready to go. Call to mother Sharla at pt's request to give him a ride home.
== END 2020-11-04 18:17 | disposition left against medical advice (07) ==
LOC: ANHED 18:55
DX: Z53.21 Procedure and treatment not carried out due to patient leaving prior to being seen by health care provider (principal)
CPT/HCPCS: 99199

== ENCOUNTER 2021-01-16 20:09 | Emergency (ER) | payer OTHER, SELFPAY ==
--- NOTE | ~2021-01-16 | XR_ITS ---
XR knee LT 2V DATE: 01/16/2021 21:00 INDICATION: Medial left knee pain. No acute injury. TECHNIQUE: Portable AP and lateral views COMPARISON: None FINDINGS: There is tricompartment osteoarthritis with periarticular spurring particularly at the mcneil llofemoral joint. Lateral compartment joint spaces appear relatively well preserved. No fracture or dislocation or joint effusion, periosteal reaction or bone destruction, radiopaque int ra-articular loose body or chondrocalcinosis is detected. IMPRESSION: Tricompartment osteoarthritis Reviewed, dictated and finalized at location A.
[2021-01-16 20:12] VITALS: BP 146/72; PULSE 72; RESP 18; TEMP 36.6; O2SAT 97
--- NOTE | 2021-01-16 20:28 | ED.GENADULT ---
HPI - General Adult General Chief complaint: Extremity Problem,Nontraumatic Stated complaint: swollen left leg Time Seen by Provider: 01/16/21 20:17 Source: patient Mode of arrival: ambulatory Limitations: no limitations History of Present Illness HPI narrative: Patient is here for evaluation of left knee pain. He states that he has had the pain intermittently for the past several months, he has had ultrasounds to rule out DVT. The pain in his left knee is worsened over the course of the day today. He did just have a 4-day hospitalization for an endoscopy procedure. He is not on any blood thinners. Onset (ago): week(s) Severity: moderate Quality: aching Relieving factors: none Exacerbating factors: movement Associated symptoms: denies other symptoms Related Data Home Medications Medication Instructions Recorded Confirmed allopurinol 08/06/19 08/06/19 atorvastatin 08/06/19 citalopram mg 08/06/19 cyclobenzaprine mg 08/06/19 dicyclomine mg 08/06/19 hydrocodone-acetaminophen 08/06/19 insulin lispro [Admelog SoloStar unit SUBCUT 08/06/19 U-100 Insulin] lisinopril 08/06/19 metformin mg 08/06/19 Allergies Allergy/AdvReac Type Severity Reaction Status Date / Time diazepam Allergy Severe Other Verified 01/16/21 21:10 aspirin Allergy Intermediate Rash Verified 01/16/21 21:10 NSAIDS (Non-Steroidal Allergy Intermediate Rash Verified 01/16/21 21:10 Anti-Inflamma erythromycin base Allergy Mild Unknown Verified 01/16/21 21:10 latex Allergy Mild Unknown Verified 01/16/21 21:10 butorphanol Allergy Unknown Unknown Verified 01/16/21 21:10 Cephalosporins Allergy Unknown Unknown Verified 01/16/21 21:10 fentanyl Allergy Unknown Rash Verified 01/16/21 21:10 ketorolac Allergy Unknown Unknown Verified 01/16/21 21:10 morphine Allergy Unknown Unknown Verified 01/16/21 21:10 nalbuphine Allergy Unknown Unknown Verified 02/28/20 20:49 orphenadrine Allergy Unknown Unknown Verified 02/28/20 20:49 Review of Systems Review of Systems: All systems reviewed & are unremarkable except as noted in HPI and below PMFSH Past Medical History Medical History (Updated 01/16/21 @ 21:42 by Soledad Shoemaker PA-C) History of gout History of hyperlipidemia History of hypertension Type 2 diabetes mellitus Surgical History Surgical History Hx of cholecystectomy Family History Family History Other Diabetes mellitus Family history of malignant neoplasm Hypertension Social History Social History Smoking status: Never smoker Alcohol intake: never Gender identity (if verbalized by the patient): Male Exam Const: General: no acute distress and alert Nutritional Appearance: obese Orientation/consciousness: patient oriented x3 HENMT: Head: normal to inspection Resp: Effort & Inspection: normal respiratory effort Cardio: Rate: regular rate Rhythm: regular rhythm Skin: General skin exam: lichenification (LE bilat) Extrem: Left lower extremity: normal capillary refill, no joint enlargement and knee (painful to palp distal and lateral patella.) Psych: Mental Status: mental status grossly normal Course Course Emergency Course: D-dimer is only slightly elevated at 0.52. Patient did have recent endoscopy and was quite immobile. Suspicion for DVT is low given the pattern of his pain. Pain is gone. Vital Signs Vital signs: Vital Signs Temperature 36.6 C 01/16/21 20:12 Pulse Rate 72 01/16/21 20:12 Respiratory Rate 18 01/16/21 20:12 Blood Pressure 146/72 H 01/16/21 20:12 Pulse Oximetry 97 01/16/21 20:12 Temperature 36.6 C 01/16/21 20:12 Pulse Rate 72 01/16/21 20:12 Respiratory Rate 18 01/16/21 20:12 Blood Pressure 146/72 H 01/16/21 20:12 Pulse Oximetry 97 01/16/21 20:12 Medical Decision Making Vital Signs
[2021-01-16] MEDS: HYDROmorphone HCL INJ (*CRX) 1 MG/ML SYR 2 MG IM (21:13)
--- NOTE | 2021-01-16 21:28 | PC.NURSE ---
PT C/O LEFT KNEE PAIN WITHOUT NEW INJURY. NO DEFORMITY, REDNESS, EDEMA NOTED. PT MORBIDLY OBESE.
[2021-01-16 21:29] LABS: Basophils Percent Auto 0.8 % (0.2-1.2); Eosinophils Absolute Auto 0.1 K/mm3 (0-0.3); Eosinophils Percent Auto 2.8 % (0-4.4); Hematocrit 37.6 % (42.0-52.0); Immature Granulocyte Absolute 0.03 K/mm3 (0.00-0.031); Immature Granulocyte Percent A 0.6 % (0-0.5); Lymphocytes Absolute Auto 1.14 K/mm3 (0.9-3.2); Lymphocytes Percent Auto 22.5 % (18.3-44.2); Mean Corpuscular HGB Conc 31.9 g/dl (32-36); Mean Corpuscular Hemoglobin 26.9 pg (26-34); Mean Corpuscular Volume 84.3 fl (80-100); Mean Platelet Volume 9.6 fl (7.4-10.4); Monocytes Absolute Auto 0.4 K/mm3 (0.1-0.6); Monocytes Percent Auto 7.3 % (2.6-8.5); Neutrophils Absolute Auto 3.3 K/mm3 (1.3-6.7); Platelet Count Result 252 k/mm3 (150-375); Red Blood Count 4.46 M/mm3 (4.6-6.20); Red Cell Distribution Width 13.6 % (11.5-14.5); White Blood Count 5.1 K/mm3 (4.5-10.0)
[2021-01-16 21:33] LABS: D Dimer 0.52 ug/mL (<0.48)
[2021-01-16] MEDS: ONDANSETRON HCL ODT 4 MG TABLET PO (21:34)
[2021-01-16 22:12] VITALS: TEMP 36.7
== END 2021-01-16 22:13 | disposition home or self-care (01) ==
PROVIDERS: Physician Assistant; Emergency Provider Emergency Medicine
DX: M17.12 Unilateral primary osteoarthritis, left knee (principal); E78.5 Hyperlipidemia, unspecified; I10 Essential (primary) hypertension; E11.9 Type 2 diabetes mellitus without complications; M10.9 Gout, unspecified; Z79.84 Long term (current) use of oral hypoglycemic drugs; Z79.4 Long term (current) use of insulin
CPT/HCPCS: 36415; 73560; 85025; 85380; 96372; 99283; A9270; J1170

== ENCOUNTER 2021-01-28 16:19 | Emergency (ER) | payer OTHER, SELFPAY ==
[2021-01-28 16:28] VITALS: BP 150/69; PULSE 101; RESP 14; TEMP 36.6; O2SAT 98
--- NOTE | 2021-01-28 17:08 | ED.GENADULT ---
HPI - General Adult General Chief complaint: Back Pain/Injury Stated complaint: lower back pain Time Seen by Provider: 01/28/21 16:37 Source: patient and family (Mother) Mode of arrival: ambulatory Limitations: no limitations History of Present Illness HPI narrative: Patient is a 55-year-old male with chronic back pain presenting with chief complaint of acute exacerbation of chronic back pain. Patient denies any mechanism of injury. 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 Patient wears a supportive back band. He was prescribed hydrocodone 10 mg tablets by his oil painter prior to being released from the practice. Patient denies any loss of bowel bladder function or saddle paresthesia. Patient reports that he needs a pain shot to decrease the pain. Related Data Home Medications Medication Instructions Recorded Confirmed allopurinol 08/06/19 08/06/19 atorvastatin 08/06/19 citalopram mg 08/06/19 cyclobenzaprine mg 08/06/19 dicyclomine mg 08/06/19 hydrocodone-acetaminophen 08/06/19 insulin lispro [Admelog SoloStar unit SUBCUT 08/06/19 U-100 Insulin] lisinopril 08/06/19 metformin mg 08/06/19 Allergies Allergy/AdvReac Type Severity Reaction Status Date / Time diazepam Allergy Severe Other Verified 01/16/21 21:10 aspirin Allergy Intermediate Rash Verified 01/16/21 21:10 NSAIDS (Non-Steroidal Allergy Intermediate Rash Verified 01/16/21 21:10 Anti-Inflamma erythromycin base Allergy Mild Unknown Verified 01/16/21 21:10 latex Allergy Mild Unknown Verified 01/16/21 21:10 butorphanol Allergy Unknown Unknown Verified 01/16/21 21:10 Cephalosporins Allergy Unknown Unknown Verified 01/16/21 21:10 fentanyl Allergy Unknown Rash Verified 01/16/21 21:10 ketorolac Allergy Unknown Unknown Verified 01/16/21 21:10 morphine Allergy Unknown Unknown Verified 01/16/21 21:10 nalbuphine Allergy Unknown Unknown Verified 02/28/20 20:49 orphenadrine Allergy Unknown Unknown Verified 02/28/20 20:49 Review of Systems Review of Systems: CONSTITUTIONAL: Denies fever, chills, or sweats. EYES: Denies visual changes, redness, or discharge. ENT: Denies rhinorrhea, congestion, sore throat, or otalgia. CARDIOVASCULAR: Denies chest pain, palpitations, or edema. RESPIRATORY: Denies cough or dyspnea. GASTROINTESTINAL: Denies abdominal pain, nausea, vomiting, or diarrhea. GENITOURINARY: Denies dysuria or hematuria. SKIN: Denies rash or itching. MUSCULOSKELETAL: Reports back pain, denies joint pain or myalgia. NEUROLOGIC: Denies headache, numbness, dizziness, or weakness. PSYCHIATRIC: Denies anxiety or depression. [facility] Past Medical History Medical History (Updated 01/28/21 @ 17:07 by Sagrario David PA-C) History of gout History of hyperlipidemia History of hypertension Type 2 diabetes mellitus Surgical History Surgical History Hx of cholecystectomy Family History Family History Other Diabetes mellitus Family history of malignant neoplasm Hypertension Social History Social History Smoking status: Never smoker Alcohol intake: never Gender identity (if verbalized by the patient): Male Exam Narrative: GENERAL: Well-appearing, well-nourished, and in no acute distress.Obese. Does not appear to be toxic or in discomfort. HEAD: Normocephalic, atraumatic. CHEST: No respiratory distress. No tachypnea. ABDOMEN: Soft, nontender, nondistended, normal active bowel sounds. NEURO: No focal deficits. Alert and oriented x3. PSYCH: Normal mood and affect. Course Vital Signs Vital signs: Vital Signs Temperature 97.8 F 01/28/21 16:28 Pulse Rate 101 H 01/28/21 16:28 Respiratory Rate 14 01/28/21 16:28 Blood Pressure 150/69 H 01/28/21 16:28 Pulse O
== END 2021-01-28 17:10 | disposition home or self-care (01) ==
PROVIDERS: Emergency Provider Emergency Medicine
DX: M54.50 Low back pain, unspecified (principal); G89.29 Other chronic pain; E11.9 Type 2 diabetes mellitus without complications; E78.5 Hyperlipidemia, unspecified; I10 Essential (primary) hypertension; M10.9 Gout, unspecified; Z79.84 Long term (current) use of oral hypoglycemic drugs; Z79.4 Long term (current) use of insulin
CPT/HCPCS: 99281

== ENCOUNTER 2021-05-03 14:20 | Emergency (ER) | payer OTHER, SELFPAY ==
--- NOTE | ~2021-05-03 | CT_ITS ---
EXAMINATION: CTA chest PE protocol DATE: 05/03/2021 20:52 INDICATION: Shortness of breath and cough. TECHNIQUE: Computed tomography angiography (CTA) of the chest was performed with 100 mL Omnipaque-350 intravenous contrast timed to evaluate the pulmonary arteries. Coronal maximum intensity projection 3D-reconstructions were created by the technologist. Automated exposure control and iterative reconst ruction technique were employed. The dose-length product was 1070.84 mGy-cm. COMPARISON: CT abdomen and pelvis 08/07/2019 FINDINGS: There is a 6 mm nodule in right lower lobe without change, likely benign. There is a 3 mm n odule at left major fissure, likely benign. There is a 3.1 x 1.3 x 1.3 cm mass in left mainstem bronc hus. No pleural effusion. The heart size is normal. There are coronary artery calcifications. No kristy cardial effusion. There are changes of cholecystectomy. There is mild thoracic spondylosis. There is mild chronic anterior wedging of multiple lower thoracic vertebral bodies. IMPRESSION: 1. No pulmonary embolus. Sensitivity is moderately decreased by suboptimal contrast opacification. 2. 3.1 x 1.3 x 1.3 cm mass in left mainstem bronchus, which may be malignancy or mucous plugging. Bro nchoscopy is recommended if this finding does not resolve on a repeat CT within a few days. Reviewed, dictated and finalized at location E. FIELD PUMPER IMPRESSION: 1. No pulmonary embolus. Sensitivity is moderately decreased by suboptimal cont rast opacification. 2. 3.1 x 1.3 x 1.3 cm mass in left mainstem bronchus, which may be malignancy o r mucous plugging. Bronchoscopy is recommended if this finding does not resolve on a repeat CT within a few days.
--- NOTE | ~2021-05-03 | XR_ITS ---
EXAMINATION: XR chest 2V DATE: 05/03/2021 18:27 INDICATION: Cough and shortness of breath. TECHNIQUE: Frontal and lateral views of the chest were obtained on 3 radiographs. COMPARISON: Chest single view 02/28/2020, CT abdomen and pelvis 08/07/2019 FINDINGS: The chest demonstrates clear lungs without pneumonia, pleural effusion, or pneumothorax. Th e heart size is normal. There is mild chronic anterior wedging of multiple lower thoracic vertebral b odies. IMPRESSION: 1. No acute cardiopulmonary disease. Reviewed, dictated and finalized at location E. EWATER ENGINEER
[2021-05-03 14:21] VITALS: BP 178/88; PULSE 78; RESP 18; TEMP 36.6; O2SAT 94
[2021-05-03 16:24] VITALS: BP 195/74; PULSE 81; RESP 17; O2SAT 95
--- NOTE | 2021-05-03 18:08 | ECG_ITS ---
Measurements Intervals [place] Rate: 80 P: 31 VT: 165 QRS: -23 QRSD: 101 T: 53 QT: 429 QTc: 496 Interpretive Statements SINUS RHYTHM LOW QRS VOLTAGE IN PRECORDIAL LEADS PROLONGED QT INTERVAL BASELINE WANDER- II, III, AVR, AVF ABNORMAL ECG Electronically Signed On 05-03-2021 20:36:45 [employer] MACHINE OPERATOR by Campos Escalona D.O.
--- NOTE | 2021-05-03 18:39 | ED.SOB ---
HPI - SOB/Dyspnea General Chief Complaint: Shortness of Breath/Dyspnea Stated Complaint: its just hard breathing Time Seen by Provider: 05/03/21 17:14 Source: patient and family Mode of arrival: ambulatory Limitations: no limitations History of Present Illness HPI Narrative: 55-year-old male Comes in with his mom with complaints of shortness of breath Patient says sometimes when he gets up walking around he feels dyspneic and if his mom acts quickly she can get a pulse oximeter on his finger and capture a transient reading of about 88%, although once as low as 85%, and then they go back up into the mid 90s once he sits down He is vaxxed and boosted against Covid and does not have a fever although he does have an occasional cough. He does not give any history of heart disease or COPD. They mention that one time he was having symptoms like this and received some kind of a shot for back pain and it made things better. Notably patient is quite morbidly obese and does have a pretty long history of dependent edema. He thinks this might be slightly worse than usual because he ate some shrimp which sometimes flares up his gout however he is not having any pain characteristic of gout. Also history of diabetes type 2 No chest pain no palpitations, no chills sweats Related Data Home Medications Medication Instructions Recorded Confirmed allopurinol 08/06/19 08/06/19 atorvastatin 08/06/19 citalopram mg 08/06/19 cyclobenzaprine mg 08/06/19 dicyclomine mg 08/06/19 hydrocodone-acetaminophen 08/06/19 insulin lispro [Admelog SoloStar unit SUBCUT 08/06/19 U-100 Insulin] lisinopril 08/06/19 metformin mg 08/06/19 Allergies Allergy/AdvReac Type Severity Reaction Status Date / Time diazepam Allergy Severe Other Verified 01/16/21 21:10 aspirin Allergy Intermediate Rash Verified 01/16/21 21:10 NSAIDS (Non-Steroidal Allergy Intermediate Rash Verified 01/16/21 21:10 Anti-Inflamma erythromycin base Allergy Mild Unknown Verified 01/16/21 21:10 latex Allergy Mild Unknown Verified 01/16/21 21:10 butorphanol Allergy Unknown Unknown Verified 01/16/21 21:10 Cephalosporins Allergy Unknown Unknown Verified 01/16/21 21:10 fentanyl Allergy Unknown Rash Verified 01/16/21 21:10 ketorolac Allergy Unknown Unknown Verified 01/16/21 21:10 morphine Allergy Unknown Unknown Verified 01/16/21 21:10 nalbuphine Allergy Unknown Unknown Verified 02/28/20 20:49 orphenadrine Allergy Unknown Unknown Verified 02/28/20 20:49 Review of Systems Review of Systems: All systems reviewed & are unremarkable except as noted in HPI and below Constitutional: Constitutional: Reports no additional constitutional complaints, Denies chills, Denies fever(s) and Denies headache(s) Eyes: Eyes: Reports no additional eye complaints and Denies change in vision ENT: Denies headache(s) and Denies sore throat Cardiovascular: Cardiovascular: Denies chest pain and Denies dyspnea Respiratory: Respiratory: Reports cough, Reports dyspnea and Denies wheezing Gastrointestinal: Gastrointestinal: Denies abdominal pain, Denies diarrhea and Denies vomiting Genitourinary: Genitourinary: Denies dysuria and Denies urinary frequency Musculoskeletal: Musculoskeletal: Reports back pain, Denies deformity, Denies arthralgias, Denies joint swelling and Denies numbness Integumentary/Breasts: Skin/Breast: Denies rash and Denies wounds Neurologic: Denies headache(s), Denies focal weakness and Denies numbness Psychiatric: Psychiatric: Reports no additional psychiatric complaints Endocrine: Endocrine: Reports no additional endocrine complaints Hematologic/Lymphatic: Hematologic/Lymphatic: Reports no additional hematologic/lymphatic complaints Allergic/Immunologic: Allergic/Immunologic: Reports no additional allergic/immunologic complaints FOR[facility]LY [facility] Past Medical History Medical History (Updated 05/03/21 @ 20:29 by Bhupendra Nino MD) History of gout History of hyperlipidemia
[2021-05-03 18:53] VITALS: PULSE 85; RESP 18; O2SAT 96
[2021-05-03 19:01] LABS: Basophils Absolute Auto 0.1 K/mm3 (0.0-0.1); Basophils Percent Auto 0.7 % (0.2-1.2); Eosinophils Absolute Auto 0.2 K/mm3 (0-0.3); Eosinophils Percent Auto 3.2 % (0-4.4); Hematocrit 41.1 % (42.0-52.0); Hemoglobin 12.8 g/dL (14.0-18.0); Immature Granulocyte Absolute 0.04 K/mm3 (0.00-0.031); Immature Granulocyte Percent A 0.6 % (0-0.5); Lymphocytes Absolute Auto 1.23 K/mm3 (0.9-3.2); Lymphocytes Percent Auto 17.7 % (18.3-44.2); Mean Corpuscular HGB Conc 31.1 g/dl (32-36); Mean Corpuscular Hemoglobin 26.3 pg (26-34); Mean Corpuscular Volume 84.6 fl (80-100); Mean Platelet Volume 9.8 fl (7.4-10.4); Monocytes Absolute Auto 0.5 K/mm3 (0.1-0.6); Monocytes Percent Auto 7.1 % (2.6-8.5); Neutrophils Absolute Auto 4.9 K/mm3 (1.3-6.7); Neutrophils Percent Auto 70.7 % (45.5-73.1); Platelet Count Result 248 k/mm3 (150-375); Red Blood Count 4.86 M/mm3 (4.6-6.20); Red Cell Distribution Width 13.4 % (11.5-14.5)
[2021-05-03 19:11] LABS: Anion Gap 7 mmol/L (8-16); Blood Urea Nitrogen 13 mg/dL (9-20); Calcium 9.1 mg/dL (8.4-10.2); Carbon Dioxide 29 mmol/L (22-30); Chloride 100 mmol/L (98-107); Estimated CRCL calculation 220 ml/min; Estimated Glomerular Filt Rate > 60; Glucose 235 mg/dL (65-110); Potassium 4.1 mmol/L (3.4-5.0); Sodium 136 mmol/L (137-145)
[2021-05-03 19:12] LABS: D Dimer 2.51 ug/mL (<0.48)
[2021-05-03 19:23] LABS: NT Pro B Type Natriuretic Pept 87 pg/mL (5-100); Troponin I < 0.012 ng/mL (0.000-0.034)
== END 2021-05-03 22:00 | disposition home or self-care (01) ==
PROVIDERS: Emergency Provider Emergency Medicine
DX: R06.00 Dyspnea, unspecified (principal); E11.9 Type 2 diabetes mellitus without complications; E66.01 Morbid (severe) obesity due to excess calories; Z68.44 Body mass index [BMI] 60.0-69.9, adult; M10.9 Gout, unspecified; E78.5 Hyperlipidemia, unspecified; I10 Essential (primary) hypertension; R94.31 Abnormal electrocardiogram [ECG] [EKG]; R91.8 Other nonspecific abnormal finding of lung field; Z79.84 Long term (current) use of oral hypoglycemic drugs; Z79.4 Long term (current) use of insulin
CPT/HCPCS: 36415; 71046; 71275; 80048; 83880; 84484; 85025; 85380; 93005; 99284; Q9967

== ENCOUNTER 2021-05-31 18:56 | Inpatient (IN) | payer OTHER, SELFPAY ==
[2021-05-31] VITALS (16 sets, daily range): BP systolic 135–165; BP diastolic 67–86; PULSE 75–82; RESP 14–25; TEMP 36.7–36.8; O2SAT 94–100; BMI 57.7
--- NOTE | ~2021-05-31 | XR_ITS ---
EXAMINATION: XR chest 2V DATE: 06/02/2021 13:07 INDICATION: Dyspnea. TECHNIQUE: Frontal and lateral views of the chest were obtained. COMPARISON: Chest 2 views 05/31/21, chest CT 05/03/2021 FINDINGS: There is a mass in left mainstem bronchus. No pleural effusion or pneumothorax. The heart s ize is normal. There is mild chronic anterior wedging of multiple lower thoracic vertebral bodies. IMPRESSION: 1. Mass in left mainstem bronchus, likely malignancy. Reviewed, dictated and finalized at location A. BOARDER
--- NOTE | ~2021-05-31 | XR_ITS ---
EXAMINATION: XR chest 2V DATE: 05/31/2021 19:58 INDICATION: Left rib pain TECHNIQUE: PA and lateral views of the chest were obtained. COMPARISON: Chest radiograph and CT dated 05/13/2021 FINDINGS: There is persistent increased lucency with decreased pulmonary vascularity in the left hemithorax rel ative to the right. Persistent masslike opacity in the left mainstem bronchus. No airspace opacities, pulmonary edema, pleural effusion or pneumothorax. The cardiomediastinal silhouette is normal. Thora cic spondylosis with chronic mild anterior wedging of a few lower thoracic vertebral bodies. IMPRESSION: 1. Increased lucency with decreased pulmonary vasculature in the left hemithorax. No left-sided pulmo nary embolism identified at the time of the prior study and this may be related to air trapping in th e left hemithorax resulting from the left mainstem endobronchial mass identified on the prior CT whic h is concerning for malignancy. Recommend bronchoscopy for further evaluation. Reviewed, dictated and finalized at location A. NATION MACHINE OPERATOR IMPRESSION: 1. Increased lucency with decreased pulmonary vasculature in the left hemithora x. No left-sided pulmonary embolism identified at the time of the prior study a nd this may be related to air trapping in the left hemithorax resulting from th e left mainstem endobronchial mass identified on the prior CT which is concerni ng for malignancy. Recommend bronchoscopy for further evaluation.
--- NOTE | ~2021-05-31 | CT_ITS ---
EXAMINATION: CTA chest EXAM DATE: 06/03/2021 13:48 INDICATION: Elevated d-dimer and abnormal chest x-ray. Left mainstem bronchus occlusion on prior CT. TECHNIQUE: Spiral CT of the chest following intravenous injection of 200 mL Omnipaque 350, patient wa s injected twice due to IV hub failure. Axial, coronal and sagittal images of the chest were reviewe d. Coronal maximum intensity pixel images of chest reviewed. The dose-length product (DLP) for this examination was 2073.50 mGy-cm. The exposure was tailored according to patient size (auto mA exposu re control), and iterative reconstruction (ASIR) was used as additional dose reduction technique. Com parison is made to prior examination from 05/03/2021. FINDINGS: Again there is masslike density in the left mainstem bronchus, a could be malignant or melissa gn and for which bronchoscopy is indicated. This may demonstrate enhancement between the 1st failed i njection and the 2nd successful injection of contrast, consistent with solid mass rather than foreign body. This measures about 3 cm in length by 1.3 cm in diameter. Left lung is slightly more lucent th an the left which could be air trapping from occluded bronchus. The lungs are clear. No aortic dissection or suspicion of pulmonary embolism. There are no pleural o r pericardial effusions. There is no mediastinal, hilar or axillary lymphadenopathy. There is n o pneumothorax. Heart normal in size. No evidence of coronary arterial calcification. Cholecyste ctomy. There is thoracic spondylosis without osteoblastic or osteolytic lesions identified. IMPRESSION: 1. Mass occluding left mainstem bronchus; bronchoscopy indicated for biopsy. 2. Resultant left lung air trapping. 3. No acute findings. Reviewed, dictated and finalized at location A. LASS FITTER
--- NOTE | ~2021-05-31 | US_ITS ---
EXAMINATION: US venous doppler [facility] EXAM DATE: 06/01/2021 14:36 INDICATION: swelling TECHNIQUE: Multiple grayscale, color flow and Doppler images of the lower extremity deep venous syste ms bilaterally were obtained and reviewed. Comparison is made to prior examination from 07/22/2019. FINDINGS: Right side: The right common femoral, femoral and profunda veins demonstrate normal color flow, respi ratory variation, augmentation and compressibility. Compressibility, color flow confirmed within the right popliteal, posterior tibial, peroneal, and greater saphenous veins. Left side: The left common femoral, femoral and profunda veins demonstrate normal color flow, respira tory variation, augmentation and compressibility. Compressibility, color flow confirmed within the l eft popliteal, posterior tibial, peroneal, and greater saphenous veins. IMPRESSION: 1. No lower extremity deep venous thrombosis bilaterally. Reviewed, dictated and finalized at location A. HOUSE STOCKER
--- NOTE | 2021-05-31 19:42 | ECG_ITS ---
Measurements Intervals [place] Rate: 76 P: 51 TX: 176 QRS: -37 QRSD: 113 T: 44 QT: 422 QTc: 477 Interpretive Statements SINUS RHYTHM LEFT AXIS DEVIATION [QRS AXIS < -30] MODERATE INTRAVENTRICULAR CONDUCTION DELAY [110+ ms QRS DURATION] QT PROLONGATION ABNORMAL ECG COMPARED TO ECG 05/03/2021 18:36:36 LEFT-AXIS DEVIATION NOW PRESENT QT INTERVAL HAS SHORTENED Electronically Signed On 06-01-2021 14:50:17 CROP SPECIALIST by Ghanshyam Madison M.D.
--- NOTE | 2021-05-31 19:50 | ED.CHESTPAIN ---
HPI - Chest Pain General Chief Complaint: Upper Respiratory Infection Stated Complaint: lung infection Time Seen by Provider: 05/31/21 19:13 Source: patient Mode of arrival: ambulatory Limitations: no limitations History of Present Illness HPI narrative: Patient is a 56-year-old male complaining of chest pain, left chest wall, sharp, 8 out of 10, worse with deep breaths and coughing accompanied by shortness of breath that started 2 days ago. Patient was seen here last month for similar complaints, had a CTA done, negative for PE but showed possible mucous plugging recommended bronchoscopy. Patient refused admission at that time and signed out AGAINST MEDICAL ADVICE. Patient states that he is currently seeing a entry level recruiter, Dr. Jane from [facility], was recently placed on oral antibiotics due to the CT scan results for possible obstructive pneumonia. Patient states that he was advised by his entry level recruiter that if the infection does not clear up after treatment with oral antibiotics, he will repeat the CT scan and will do a bronchoscopy with biopsy possibly next week. Related Data Home Medications Medication Instructions Recorded Confirmed allopurinol 300 mg PO HS 08/06/19 08/06/19 atorvastatin 80 mg PO HS 08/06/19 citalopram 20 mg PO DAILY 08/06/19 dicyclomine 10 mg PO BID PRN 08/06/19 lisinopril 20 mg PO DAILY 08/06/19 diclofenac sodium 50 mg PO DAILY 05/31/21 pantoprazole 40 mg PO BID 05/31/21 Allergies Allergy/AdvReac Type Severity Reaction Status Date / Time diazepam Allergy Severe Other Verified 05/31/21 19:32 aspirin Allergy Intermediate Rash Verified 05/31/21 19:32 NSAIDS (Non-Steroidal Allergy Intermediate Rash Verified 05/31/21 19:32 Anti-Inflamma erythromycin base Allergy Mild Unknown Verified 05/31/21 19:32 latex Allergy Mild Unknown Verified 05/31/21 19:32 butorphanol Allergy Unknown Unknown Verified 05/31/21 19:32 Cephalosporins Allergy Unknown Unknown Verified 05/31/21 19:32 fentanyl Allergy Unknown Rash Verified 05/31/21 19:32 ketorolac Allergy Unknown Unknown Verified 05/31/21 19:32 morphine Allergy Unknown Unknown Verified 05/31/21 19:32 nalbuphine Allergy Unknown Unknown Verified 05/31/21 19:32 orphenadrine Allergy Unknown Unknown Verified 05/31/21 19:32 Review of Systems Review of Systems: All systems reviewed & are unremarkable except as noted in HPI and below Constitutional: Constitutional: Denies body ache(s), Denies chills, Denies excessive sweating, Denies fatigue, Denies fever(s), Denies headache(s), Denies lethargy, Denies malaise, Denies weakness and Denies weight loss Eyes: Eyes: Denies blurry vision, Denies change in vision and Denies loss of vision ENT: Denies dizziness, Denies ear discharge, Denies headache(s), Denies lip swelling, Denies epistaxis, Denies nasal congestion, Denies neck pain, Denies throat swelling and Denies tongue swelling Cardiovascular: Cardiovascular: Denies diaphoresis, Denies rapid heart rate, Denies edema, Denies irregular heart rhythm, Denies lightheadedness and Denies palpitations Respiratory: Respiratory: Denies chest congestion and Denies hemoptysis Gastrointestinal: Gastrointestinal: Denies abdominal pain, Denies melena, Denies hematochezia, Denies diarrhea, Denies nausea, Denies vomiting and Denies hematemesis Musculoskeletal: Musculoskeletal: Denies abnormal gait, Denies deformity, Denies joint swelling, Denies limited range of motion, Denies neck pain and Denies numbness Neurologic: Denies Abnormal speech present, Denies abnormal gait, Denies confusion, Denies dizziness, Denies headache(s), Denies focal weakness, Denies loss of vision, Denies numbness, Denies Other visual disturbances, Denies Sensory deficit (Neuro) and Denies weakness Psychiatric: Psychiatric: Denies confusion, Denies depression, Denies auditory hallucinations, Denies homicidal ideation and Denies suicidal ideation Endocrine: Endocrine: Denies cold intolerance, Denies excessive sweating,
[2021-05-31 20:16] LABS: Basophils Absolute Auto 0.1 K/mm3 (0.0-0.1); Basophils Percent Auto 0.8 % (0.2-1.2); Eosinophils Absolute Auto 0.2 K/mm3 (0-0.3); Eosinophils Percent Auto 2.7 % (0-4.4); Hematocrit 42.5 % (42.0-52.0); Hemoglobin 13.5 g/dL (14.0-18.0); Immature Granulocyte Absolute 0.02 K/mm3 (0.00-0.031); Immature Granulocyte Percent A 0.3 % (0-0.5); Lymphocytes Absolute Auto 1.26 K/mm3 (0.9-3.2); Lymphocytes Percent Auto 21.2 % (18.3-44.2); Mean Corpuscular HGB Conc 31.8 g/dl (32-36); Mean Corpuscular Hemoglobin 26.3 pg (26-34); Mean Corpuscular Volume 82.8 fl (80-100); Mean Platelet Volume 10.1 fl (7.4-10.4); Monocytes Absolute Auto 0.5 K/mm3 (0.1-0.6); Monocytes Percent Auto 7.9 % (2.6-8.5); Neutrophils Percent Auto 67.1 % (45.5-73.1); Platelet Count Result 260 k/mm3 (150-375); Red Blood Count 5.13 M/mm3 (4.6-6.20); Red Cell Distribution Width 13.7 % (11.5-14.5)
[2021-05-31 20:23] LABS: Prothrombin Time 12.8 Seconds (11.1-14.7)
[2021-05-31 20:24] LABS: Partial Thromboplastin Time 29.2 SECONDS (22.3-36.8)
[2021-05-31 20:25] LABS: Alanine Aminotransferase 26 U/L (4-50); Albumin Level 3.9 g/dL (3.5-5.1); Alkaline Phosphatase 88 U/L (38-126); Anion Gap 8 mmol/L (8-16); Aspartate Amino Transferase 24 U/L (17-59); Bilirubin,Total 0.9 mg/dL (0.2-1.3); Blood Urea Nitrogen 14 mg/dL (9-20); Calcium 8.6 mg/dL (8.4-10.2); Carbon Dioxide 27 mmol/L (22-30); Chloride 101 mmol/L (98-107); Estimated CRCL calculation 192 ml/min; Estimated Glomerular Filt Rate > 60; Glucose 265 mg/dL (65-110); Lipase 165 U/L (23-300); Potassium 3.9 mmol/L (3.4-5.0); Sodium 136 mmol/L (137-145)
[2021-05-31 20:37] LABS: Troponin I < 0.012 ng/mL (0.000-0.034)
--- NOTE | 2021-05-31 21:29 | PM.IMHP ---
H&P: HPI History of Present Illness Date/Time: 05/31/21 21:29 Chief Complaint: Chest discomfort. Narrative: This is a 56-year-old male morbidly obese is with past medical history significant for dyslipidemia, obstructive sleep apnea on CPAP at nighttime, gout, hypertension, GERD. Patient is been in the process of being worked up for left a bronchial mass he is seeing a director of casino marketing at outside hospital. Patient presents today to our emergency room due to chest discomfort he denies any fevers, rigors, chills ,he had some cough and some sputum production however denies any shortness of breath, any change in sputum quality or copious amount of secretion, no nausea no vomiting, no dizziness, no near syncope ,no syncope ,no abdominal pain. According to patient he has had a bronchoscopy done which showed mucus plugging. Here today chest x-ray shows infiltrate. Patient is being admitted for further evaluation, management and treatment. Review of Systems Review of Systems: Chest discomfort which changes with deep inspiration on some cough scanty amount of sputum production patient been in the process of being worked up in the outpatient setting for left bronchial months. Id is states that bronchoscopy showed mucous plugging.. Constitutional: Constitutional: Denies chills, Denies fatigue, Denies fever(s), Denies malaise and Denies weakness Eyes: Eyes: Denies change in vision ENT: Denies dysphagia, Denies vertigo, Denies dizziness, Denies nasal congestion, Denies nasal discharge, Denies nasal obstruction and Denies odynophagia Cardiovascular: Cardiovascular: Denies pedal edema, Denies claudication, Denies leg edema, Denies lightheadedness, Denies radiating jaw, neck or arm pain, Denies palpitations, Denies dyspnea, Denies dyspnea on exertion, Denies orthopnea and Denies paroxysmal nocturnal dyspnea Respiratory: Respiratory: Reports cough, Denies excessive phlegm production, Denies dyspnea and Denies wheezing Gastrointestinal: Gastrointestinal: Denies abdominal pain, Denies dyspepsia, Denies heartburn, Denies diarrhea, Denies nausea and Denies vomiting Genitourinary: Genitourinary: Denies dysuria and Denies flank pain Musculoskeletal: Musculoskeletal: Reports back pain, Denies myalgias, Denies arthralgias and Denies joint swelling Integumentary/Breasts: Skin/Breast: Denies rash Neurologic: Denies vertigo, Denies dizziness, Denies syncope, Denies focal weakness and Denies Sensory deficit (Neuro) Psychiatric: Psychiatric: Reports no additional psychiatric complaints and Reports as per HPI Endocrine: Endocrine: Denies cold intolerance, Denies heat intolerance, Denies polyphagia, Denies polydipsia, Denies polyuria and Denies palpitations Hematologic/Lymphatic: Hematologic/Lymphatic: Reports no additional hematologic/lymphatic complaints and Reports as per HPI Allergic/Immunologic: Allergic/Immunologic: Reports no additional allergic/immunologic complaints and Reports as per HPI PMFSH Past Medical History Medical History (Updated 06/01/21 @ 03:50 by Quoc Sparks MD) History of gout History of hyperlipidemia History of hypertension Type 2 diabetes mellitus Surgical History Surgical History Hx of cholecystectomy Family History Family History Other Diabetes mellitus Family history of malignant neoplasm Hypertension Social History Social History Smoking status: Never smoker Alcohol intake: never Substance use: current Substance use type: marijuana Other substance usage details: daily Gender identity (if verbalized by the patient): Male Spiritual care concerns: No Meds Home Medications and Allergies Home Medications Medication Instructions Recorded Confirmed Type allopurinol 300 mg PO HS 08/06/19 05/31/21 History atorvastatin 80 mg PO
[2021-05-31] MEDS: IPRATROPIUM BR 0.02% INH SOLN 0.5 MG/2.5 ML VIAL INHALATION (21:38)
[2021-05-31] MEDS: ALBUTEROL SULFATE NEB 2.5 MG/0.5 ML INH 5 MG INHALATION (21:38)
[2021-05-31] MEDS: LACTATED RINGERS 1,000 ML 125 ML IV CONT (21:55)
[2021-05-31 22:24] LABS: Lactic Acid Reflex 1.4 mmol/L (0.7-2.1)
--- NOTE | 2021-05-31 22:56 | ADMGEN ---
This patient, Josué Chen, was admitted to 2 Medical Room 255-01. Patient/family oriented to hospital policies and general routines including ID bracelet, bed and alarms, visiting hours, pain management, procedures, bathroom and other care routines, personal items, smoking policy, room service/diet, and visiting hours. Information on how to activate the Rapid Response Team has been discussed. Patient/Family are encouraged to report perceived risks to care and to ask questions if they do not understand what they are told or what they should do.
[2021-05-31 23:42] LABS: Troponin I < 0.012 ng/mL (0.000-0.034)
[2021-06-01] VITALS (18 sets, daily range): BP systolic 131–169; BP diastolic 51–84; PULSE 62–90; RESP 16–21; TEMP 36.1–36.6; O2SAT 95–100
[2021-06-01 00:14] LABS: Glucose Point of Care 297 mg/dl (65-105)
[2021-06-01] MEDS: ATORVASTATIN 40 MG TABLET 80 MG PO ×2 (00:59→20:50)
[2021-06-01] MEDS: allopurinoL 300 MG TABLET PO ×2 (00:59→20:50)
[2021-06-01] MEDS: IPRATROPIUM BR 0.02% INH SOLN 0.5 MG/2.5 ML VIAL INHALATION ×4 (02:15→20:58)
[2021-06-01] MEDS: ALBUTEROL SULFATE NEB 2.5 MG/0.5 ML INH 5 MG INHALATION ×4 (02:15→20:58)
[2021-06-01 02:23] LABS: Troponin I < 0.012 ng/mL (0.000-0.034)
[2021-06-01] MEDS: HYDROmorphone HCL (*CRX) 1 MG TABLET 2 MG PO (02:46)
[2021-06-01] MEDS: HEPARIN SODIUM 5,000 UNITS/ML VIAL 5000 UNITS SUB-Q ×3 (06:36→20:51)
[2021-06-01 07:43] LABS: Glucose Point of Care 203 mg/dl (65-105)
--- NOTE | 2021-06-01 08:45 | P.PNIM_ITS ---
Progress Note: A&P Assessment and Plan (1) Lung mass: Code(s): R91.8 - Other nonspecific abnormal finding of lung field Status: Acute Assessment and Plan: * Patient present with shortness of breath * CTA from 05/03/21 found a mass in the left mainstem bronchus * Seeing Dr. Coker at [facility] * Does have a non productive cough * Just finished a 7 day course of cipro and will complete a 10 day course of doxycycline * Blood cultures in progress * Pretty sure this is not a pneumonia * Consider a CTA (2) Hypertension: Code(s): I10 - Essential (primary) hypertension Status: Acute Assessment and Plan: * BP 138/75 * Continue home lisinopril 20mg pO daily * Trend BP * Adjust therapy as indicated (3) Chronic pain: Code(s): G89.29 - Other chronic pain Status: Acute Assessment and Plan: * Sees a pain management physician * In the process of finding a doctor * Dilaudid 1mg IV Q3hr PRN (4) Morbid obesity with BMI of 50.0-59.9, adult: Code(s): E66.01 - Morbid (severe) obesity due to excess calories; Z68.43 - Body mass index [BMI] 50.0-59.9, adult Status: Acute Assessment and Plan: * Carb consistent diet 1800 calories daily * Lifestyle and diet modifications * surgical corsetier consult (5) Obstructive sleep apnea on CPAP: Code(s): G47.33 - Obstructive sleep apnea (adult) (pediatric); Z99.89 - Dependence on other enabling machines and devices Status: Acute Assessment and Plan: * Continue CPAP at nighttime (6) Fluid overload: Code(s): E87.70 - Fluid overload, unspecified Status: Acute Assessment and Plan: * Bilateral lower extremity swelling left greater than right * Venous doppler * Lasix 40mg IV daily * Trend volume status * daily weight Time Spent With Patient Time with patient: Greater than 35 minutes Subjective Date/time seen: 06/01/21 0845 Interval history: Date/Time: 05/31/21 21:29 Narrative: This is a 56-year-old male morbidly obese is with past medical history significant for dyslipidemia, obstructive sleep apnea on CPAP at nighttime, gout, hypertension, GERD. Patient is been in the process of being worked up for left a bronchial mass he is seeing a product technician at outside hospital. Patient presents today to our emergency room due to chest discomfort he denies any fevers, rigors, chills ,he had some cough and some sputum prod uction however denies any shortness of breath, any change in sputum quality or copious amount of secretion, no nausea no vomiting, no dizziness, no near syncope ,no syncope ,no abdominal pain. According to patient he has had a bronchoscopy done which showed mucus plugging. Here today chest x-ray shows infiltrate. Patient is being admitted for further evaluation, management and treatment. Date/Time 06/01/21 0845 Patient was lying in bed. Patient was talk to me about his pain. Patient stated that he was seeing a pain management doctor however the doctor had retire d and the patient has not count to see the new MD yet. He does admit to having a cough which is clear and white. He also stated that it was thickened little worse than usual. He also stated that he had shortness of breath with activity for the last couple weeks along with back pain. He denies any chest pain, shortness of breath, weakness, fatigue. Patient denies any chest pain, palpitations, nausea, vomiting, diarrhea, constipation.
--- NOTE | 2021-06-01 08:45 | PM.IMPN ---
Progress Note: A&P Assessment and Plan (1) Lung mass: Code(s): R91.8 - Other nonspecific abnormal finding of lung field Status: Acute Assessment and Plan: Patient present with shortness of breath CTA from 05/03/21 found a mass in the left mainstem bronchus Seeing Dr. Coker at [facility] Does have a non productive cough Just finished a 7 day course of cipro and will complete a 10 day course of doxycycline Blood cultures in progress Pretty sure this is not a pneumonia Consider a CTA (2) Hypertension: Code(s): I10 - Essential (primary) hypertension Status: Acute Assessment and Plan: BP 138/75 Continue home lisinopril 20mg pO daily Trend BP Adjust therapy as indicated (3) Chronic pain: Code(s): G89.29 - Other chronic pain Status: Acute Assessment and Plan: Sees a pain management physician In the process of finding a doctor Dilaudid 1mg IV Q3hr PRN (4) Morbid obesity with BMI of 50.0-59.9, adult: Code(s): E66.01 - Morbid (severe) obesity due to excess calories; Z68.43 - Body mass index [BMI] 50.0-59.9, adult Status: Acute Assessment and Plan: Carb consistent diet 1800 calories daily Lifestyle and diet modifications head control clerk consult (5) Obstructive sleep apnea on CPAP: Code(s): G47.33 - Obstructive sleep apnea (adult) (pediatric); Z99.89 - Dependence on other enabling machines and devices Status: Acute Assessment and Plan: Continue CPAP at nighttime (6) Fluid overload: Code(s): E87.70 - Fluid overload, unspecified Status: Acute Assessment and Plan: Bilateral lower extremity swelling left greater than right Venous doppler Lasix 40mg IV daily Trend volume status daily weight Time Spent With Patient Time with patient: Greater than 35 minutes Subjective Date/time seen: 06/01/21 0845 Interval history: Date/Time: 05/31/21 21:29 Narrative: This is a 56-year-old male morbidly obese is with past medical history significant for dyslipidemia, obstructive sleep apnea on CPAP at nighttime, gout, hypertension, GERD. Patient is been in the process of being worked up for left a bronchial mass he is seeing a cad draftsman at outside hospital. Patient presents today to our emergency room due to chest discomfort he denies any fevers, rigors, chills ,he had some cough and some sputum production however denies any shortness of breath, any change in sputum quality or copious amount of secretion, no nausea no vomiting, no dizziness, no near syncope ,no syncope ,no abdominal pain. According to patient he has had a bronchoscopy done which showed mucus plugging. Here today chest x-ray shows infiltrate. Patient is being admitted for further evaluation, management and treatment. Date/Time 06/01/21 0845 Patient was lying in bed. Patient was talk to me about his pain. Patient stated that he was seeing a pain management doctor however the doctor had retired and the patient has not count to see the new MD yet. He does admit to having a cough which is clear and white. He also stated that it was thickened little worse than usual. He also stated that he had shortness of breath with activity for the last couple weeks along with back pain. He denies any chest pain, shortness of breath, weakness, fatigue. Patient denies any chest pain, palpitations, nausea, vomiting, diarrhea, constipation. Review of Systems Review of Systems: All systems reviewed & are unremarkable except as noted in HPI and below Exam Const: General: cooperative, healthy appearing, comfortable, no acute distress, well developed, alert, awake, Physically active and well groomed Nutritional Appearance: well nourished and obese morbidly obese Orientation/consciousness: patient oriented x3 Limitations: no limitations HENMT: Head: normal to inspection, normocephalic and atraumatic Ears: h
[2021-06-01] MEDS: CITALOPRAM HYDROBROMIDE 20 MG TABLET PO (09:16)
[2021-06-01] MEDS: lisinopriL 20 MG TABLET PO (09:16)
[2021-06-01] MEDS: DICLOFENAC SOD 25 MG TABLET.EC 50 MG PO (09:16)
[2021-06-01] MEDS: PANTOPRAZOLE 40 MG TABLET PO ×2 (09:16→16:11)
--- NOTE | 2021-06-01 11:10 | PCDIET ---
Nutrition consult for diabetic diet. See Nutrition Teaching Intervention. Thank you for the consult.
[2021-06-01] MEDS: HYDROmorphone HCL INJ (*CRX) 1 MG/ML SYR IV PUSH ×3 (12:49→20:51)
[2021-06-01] MEDS: DOXYCYCLINE HYCLATE 100 MG TABLET PO ×2 (14:45→20:51)
[2021-06-01 16:41] LABS: Glucose Point of Care 275 mg/dl (65-105)
[2021-06-01] MEDS: INSULIN ASPART (*BKC) 100 UNITS/ML SUB-Q (17:12)
[2021-06-01 22:24] LABS: Glucose Point of Care 270 mg/dl (65-105)
[2021-06-02] VITALS (19 sets, daily range): BP systolic 113–151; BP diastolic 58–92; PULSE 60–118; RESP 16–20; TEMP 36–37.1; O2SAT 91–97
[2021-06-02] MEDS: ALBUTEROL SULFATE NEB 2.5 MG/0.5 ML INH 5 MG INHALATION ×4 (02:07→20:38)
[2021-06-02] MEDS: IPRATROPIUM BR 0.02% INH SOLN 0.5 MG/2.5 ML VIAL INHALATION ×4 (02:07→20:38)
[2021-06-02] MEDS: HYDROmorphone HCL INJ (*CRX) 1 MG/ML SYR IV PUSH ×4 (02:30→12:41)
[2021-06-02 05:38] LABS: Basophils Percent Auto 0.9 % (0.2-1.2); Eosinophils Absolute Auto 0.2 K/mm3 (0-0.3); Eosinophils Percent Auto 3.8 % (0-4.4); Hematocrit 39.8 % (42.0-52.0); Hemoglobin 12.6 g/dL (14.0-18.0); Immature Granulocyte Absolute 0.01 K/mm3 (0.00-0.031); Immature Granulocyte Percent A 0.2 % (0-0.5); Lymphocytes Percent Auto 23.5 % (18.3-44.2); Mean Corpuscular HGB Conc 31.7 g/dl (32-36); Mean Corpuscular Hemoglobin 26.2 pg (26-34); Mean Corpuscular Volume 82.7 fl (80-100); Mean Platelet Volume 10.1 fl (7.4-10.4); Monocytes Absolute Auto 0.4 K/mm3 (0.1-0.6); Neutrophils Absolute Auto 2.9 K/mm3 (1.3-6.7); Neutrophils Percent Auto 62.6 % (45.5-73.1); Platelet Count Result 208 k/mm3 (150-375); Red Blood Count 4.81 M/mm3 (4.6-6.20); Red Cell Distribution Width 13.5 % (11.5-14.5); White Blood Count 4.7 K/mm3 (4.5-10.0)
[2021-06-02] MEDS: HEPARIN SODIUM 5,000 UNITS/ML VIAL 5000 UNITS SUB-Q ×3 (05:39→20:37)
[2021-06-02 05:46] LABS: Alanine Aminotransferase 23 U/L (4-50); Albumin Level 3.7 g/dL (3.5-5.1); Alkaline Phosphatase 85 U/L (38-126); Anion Gap 7 mmol/L (8-16); Aspartate Amino Transferase 26 U/L (17-59); Bilirubin,Total 1.5 mg/dL (0.2-1.3); Blood Urea Nitrogen 13 mg/dL (9-20); Calcium 8.2 mg/dL (8.4-10.2); Carbon Dioxide 28 mmol/L (22-30); Chloride 100 mmol/L (98-107); Estimated CRCL calculation 178 ml/min; Estimated Glomerular Filt Rate > 60; Glucose 270 mg/dL (65-110); Magnesium 1.6 mg/dL (1.6-2.3); Potassium 3.9 mmol/L (3.4-5.0); Sodium 135 mmol/L (137-145)
[2021-06-02 07:15] LABS: D Dimer < 0.27 ug/mL (<0.48)
[2021-06-02 07:59] LABS: Glucose Point of Care 237 mg/dl (65-105)
--- NOTE | 2021-06-02 08:30 | PM.IMPN ---
Progress Note: A&P Assessment and Plan (1) Lung mass: Code(s): R91.8 - Other nonspecific abnormal finding of lung field Status: Acute Assessment and Plan: Patient present with shortness of breath CTA from 05/03/21 found a mass in the left mainstem bronchus Seeing Dr. Mike at [facility] Productive cough noted with clear thick sputum Just finished a 7 day course of cipro and will complete a 10 day course of doxycycline Blood cultures in progress Pretty sure this is not a pneumonia Consider a CTA (2) Hypertension: Code(s): I10 - Essential (primary) hypertension Status: Acute Assessment and Plan: BP 138/75 Continue home lisinopril 20mg pO daily Trend BP Adjust therapy as indicated (3) Chronic pain: Code(s): G89.29 - Other chronic pain Status: Acute Assessment and Plan: Sees a pain management physician In the process of finding a doctor Dilaudid 1mg IV Q3hr PRN (4) Morbid obesity with BMI of 50.0-59.9, adult: Code(s): E66.01 - Morbid (severe) obesity due to excess calories; Z68.43 - Body mass index [BMI] 50.0-59.9, adult Status: Acute Assessment and Plan: Carb consistent diet 1800 calories daily Lifestyle and diet modifications seat mender consult (5) Obstructive sleep apnea on CPAP: Code(s): G47.33 - Obstructive sleep apnea (adult) (pediatric); Z99.89 - Dependence on other enabling machines and devices Status: Acute Assessment and Plan: Continue CPAP at nighttime (6) Fluid overload: Code(s): E87.70 - Fluid overload, unspecified Status: Acute Assessment and Plan: Bilateral lower extremity swelling left greater than right Venous doppler negative for DVT Lasix 40mg IV daily, give another dose tonight Trend volume status daily weight Time Spent With Patient Time with patient: Greater than 35 minutes Subjective Date/time seen: 06/02/21 0830 Interval history: Date/Time: 05/31/21 21:29 Narrative: This is a 56-year-old male morbidly obese is with past medical history significant for dyslipidemia, obstructive sleep apnea on CPAP at nighttime, gout, hypertension, GERD. Patient is been in the process of being worked up for left a bronchial mass he is seeing a carton and can supply supervisor at outside hospital. Patient presents today to our emergency room due to chest discomfort he denies any fevers, rigors, chills ,he had some cough and some sputum production however denies any shortness of breath, any change in sputum quality or copious amount of secretion, no nausea no vomiting, no dizziness, no near syncope ,no syncope ,no abdominal pain. According to patient he has had a bronchoscopy done which showed mucus plugging. Here today chest x-ray shows infiltrate. Patient is being admitted for further evaluation, management and treatment. Date/Time 06/01/21844 Patient was lying in bed. Patient was talk to me about his pain. Patient stated that he was seeing a pain management doctor however the doctor had retired and the patient has not count to see the new MD yet. He does admit to having a cough which is clear and white. He also stated that it was thickened little worse than usual. He also stated that he had shortness of breath with activity for the last couple weeks along with back pain. He denies any chest pain, shortness of breath, weakness, fatigue. Patient denies any chest pain, palpitations, nausea, vomiting, diarrhea, constipation. Date/Time 06/02/21829 Patient was lying in bed. Patient stated that he was doing okay. He also stated he thought he was doing better however he had walked to the nurse's station had a coughing spell and was unable to maintain his breathing. He did state that he is getting clear sputum up. He also stated he has chest pain however it is with the cough. When he is not coughing his chest is not pay hurt. He denies an
--- NOTE | 2021-06-02 08:30 | P.PNIM_ITS ---
Progress Note: A&P Assessment and Plan (1) Lung mass: Code(s): R91.8 - Other nonspecific abnormal finding of lung field Status: Acute Assessment and Plan: * Patient present with shortness of breath * CTA from 05/03/21 found a mass in the left mainstem bronchus * Seeing Dr. Mike at [facility] * Productive cough noted with clear thick sputum * Just finished a 7 day course of cipro and will complete a 10 day course of doxycycline * Blood cultures in progress * Pretty sure this is not a pneumonia * Consider a CTA (2) Hypertension: Code(s): I10 - Essential (primary) hypertension Status: Acute Assessment and Plan: * BP 138/75 * Continue home lisinopril 20mg pO daily * Trend BP * Adjust therapy as indicated (3) Chronic pain: Code(s): G89.29 - Other chronic pain Status: Acute Assessment and Plan: * Sees a pain management physician * In the process of finding a doctor * Dilaudid 1mg IV Q3hr PRN (4) Morbid obesity with BMI of 50.0-59.9, adult: Code(s): E66.01 - Morbid (severe) obesity due to excess calories; Z68.43 - Body mass index [BMI] 50.0-59.9, adult Status: Acute Assessment and Plan: * Carb consistent diet 1800 calories daily * Lifestyle and diet modifications * manager rn case consult (5) Obstructive sleep apnea on CPAP: Code(s): G47.33 - Obstructive sleep apnea (adult) (pediatric); Z99.89 - Dependence on other enabling machines and devices Status: Acute Assessment and Plan: * Continue CPAP at nighttime (6) Fluid overload: Code(s): E87.70 - Fluid overload, unspecified Status: Acute Assessment and Plan: * Bilateral lower extremity swelling left greater than right * Venous doppler negative for DVT * Lasix 40mg IV daily, give another dose tonight * Trend volume status * daily weight Time Spent With Patient Time with patient: Greater than 35 minutes Subjective Date/time seen: 06/02/21 0830 Interval history: Date/Time: 05/31/21 21:29 Narrative: This is a 56-year-old male morbidly obese is with past medical history significant for dyslipidemia, obstructive sleep apnea on CPAP at nighttime, gout, hypertension, GERD. Patient is been in the process of being worked up for left a bronchial mass he is seeing a chemical treatment plant technician at outside hospital. Patient presents today to our emergency room due to chest discomfort he denies any fevers, rigors, chills ,he had some cough and some sputum production however denies any shortness of breath, any change in sputum quality or copious amount of secretion, no nausea no vomiting, no dizziness, no near syncope ,no syncope ,no abdominal pain. According to patient he has had a bronchoscopy done which showed mucus plugging. Here today chest x-ray shows infiltrate. Patient is being admitted for further evaluation, management and treatment. Date/Time 06/01/21 3228 Patient was lying in bed. Patient was talk to me about his pain. Patient stated that he was seeing a pain management doctor however the doctor had retired and the patient has not count to see the new MD yet. He does admit to having a cough which is clear and white. He also stated that it was thickened little worse than usual. He also stated that he had shortness of breath with activity for the last couple weeks along with back pain. He denies any chest pain, shortness of breath, weakness, fatigue. Patient denies any chest
[2021-06-02] MEDS: INSULIN ASPART (*BKC) 100 UNITS/ML SUB-Q ×3 (09:58→17:00)
[2021-06-02] MEDS: MAGNESIUM SULF 2 GM/WATER 50ML 2 GM/50 ML BAG IVPB (09:58)
[2021-06-02] MEDS: CITALOPRAM HYDROBROMIDE 20 MG TABLET PO (09:59)
[2021-06-02] MEDS: DOXYCYCLINE HYCLATE 100 MG TABLET PO ×2 (09:59→20:37)
[2021-06-02] MEDS: PANTOPRAZOLE 40 MG TABLET PO ×2 (09:59→16:55)
[2021-06-02] MEDS: DICLOFENAC SOD 25 MG TABLET.EC 50 MG PO (09:59)
[2021-06-02] MEDS: FUROSEMIDE INJ 40 MG/4 ML VIAL IV PUSH ×2 (10:00→16:55)
[2021-06-02] MEDS: lisinopriL 20 MG TABLET PO (10:00)
[2021-06-02 12:00] LABS: Glucose Point of Care 310 mg/dl (65-105)
[2021-06-02 16:52] LABS: Glucose Point of Care 278 mg/dl (65-105)
[2021-06-02] MEDS: HYDROmorphone HCL INJ (*CRX) 1 MG/ML SYR 2 MG IV PUSH ×2 (16:54→23:52)
[2021-06-02] MEDS: HYDROcodone/acetaminophen (*CRX) 10-325 MG TABLET 1 TAB PO (18:34)
[2021-06-02] MEDS: ATORVASTATIN 40 MG TABLET 80 MG PO (20:37)
[2021-06-02] MEDS: allopurinoL 300 MG TABLET PO (20:37)
[2021-06-02 21:02] LABS: Glucose Point of Care 305 mg/dl (65-105)
--- NOTE | 2021-06-02 21:27 | ECG_ITS ---
Measurements Intervals [place] Rate: 75 P: 50 ID: [id number] QRS: -33 QRSD: 111 T: 42 QT: 434 QTc: 486 Interpretive Statements SINUS RHYTHM LEFT AXIS DEVIATION [QRS AXIS < -30] WANDERING BASELINE ARTIFACT INTRAVENTRICULAR CONDUCTION DELAY [110+ ms QRS DURATION] PROLONGED QT INTERVAL COMPARED TO ECG 05/31/2021 19:47:58 NO SIGNIFICANT CHANGE Electronically Signed On 06-03-2021 13:50:56 LOG LOADER by Ghanshyam Madison M.D.
[2021-06-03] VITALS (13 sets, daily range): BP systolic 117–124; BP diastolic 64–71; PULSE 64–86; RESP 17–20; TEMP 35.4–36.5; O2SAT 92–94
[2021-06-03] MEDS: IPRATROPIUM BR 0.02% INH SOLN 0.5 MG/2.5 ML VIAL INHALATION ×3 (02:40→14:27)
[2021-06-03] MEDS: ALBUTEROL SULFATE NEB 2.5 MG/0.5 ML INH 5 MG INHALATION ×3 (02:40→14:26)
[2021-06-03] MEDS: HEPARIN SODIUM 5,000 UNITS/ML VIAL 5000 UNITS SUB-Q ×2 (05:54→14:07)
[2021-06-03] MEDS: HYDROmorphone HCL INJ (*CRX) 1 MG/ML SYR 2 MG IV PUSH ×2 (05:54→12:25)
[2021-06-03 07:51] LABS: Glucose Point of Care 287 mg/dl (65-105)
[2021-06-03 09:28] LABS: Eosinophils Absolute Auto 0.1 K/mm3 (0-0.3); Eosinophils Percent Auto 3.3 % (0-4.4); Hematocrit 43.5 % (42.0-52.0); Hemoglobin 13.3 g/dL (14.0-18.0); Immature Granulocyte Absolute 0.01 K/mm3 (0.00-0.031); Immature Granulocyte Percent A 0.3 % (0-0.5); Lymphocytes Absolute Auto 0.94 K/mm3 (0.9-3.2); Lymphocytes Percent Auto 23.8 % (18.3-44.2); Mean Corpuscular HGB Conc 30.6 g/dl (32-36); Mean Corpuscular Hemoglobin 26.3 pg (26-34); Mean Platelet Volume 10.4 fl (7.4-10.4); Monocytes Absolute Auto 0.3 K/mm3 (0.1-0.6); Monocytes Percent Auto 8.4 % (2.6-8.5); Neutrophils Absolute Auto 2.5 K/mm3 (1.3-6.7); Neutrophils Percent Auto 63.2 % (45.5-73.1); Platelet Count Result 228 k/mm3 (150-375); Red Blood Count 5.06 M/mm3 (4.6-6.20); Red Cell Distribution Width 13.9 % (11.5-14.5)
[2021-06-03 09:40] LABS: D Dimer 0.52 ug/mL (<0.48)
[2021-06-03 09:45] LABS: Alanine Aminotransferase 26 U/L (4-50); Albumin Level 4.1 g/dL (3.5-5.1); Alkaline Phosphatase 98 U/L (38-126); Anion Gap 10 mmol/L (8-16); Aspartate Amino Transferase 29 U/L (17-59); Bilirubin,Total 2.1 mg/dL (0.2-1.3); Blood Urea Nitrogen 18 mg/dL (9-20); Calcium 8.3 mg/dL (8.4-10.2); Carbon Dioxide 28 mmol/L (22-30); Chloride 96 mmol/L (98-107); Estimated CRCL calculation 107 ml/min; Estimated Glomerular Filt Rate > 60; Glucose 318 mg/dL (65-110); Magnesium 1.6 mg/dL (1.6-2.3); Potassium 4.7 mmol/L (3.4-5.0); Sodium 134 mmol/L (137-145)
[2021-06-03] MEDS: DICLOFENAC SOD 25 MG TABLET.EC 50 MG PO (09:48)
[2021-06-03] MEDS: lisinopriL 20 MG TABLET PO (09:48)
[2021-06-03] MEDS: DOXYCYCLINE HYCLATE 100 MG TABLET PO (09:48)
[2021-06-03] MEDS: PANTOPRAZOLE 40 MG TABLET PO (09:48)
[2021-06-03] MEDS: INSULIN ASPART (*BKC) 100 UNITS/ML SUB-Q ×2 (09:48→12:25)
[2021-06-03] MEDS: CITALOPRAM HYDROBROMIDE 20 MG TABLET PO (09:49)
[2021-06-03] MEDS: FUROSEMIDE INJ 40 MG/4 ML VIAL IV PUSH (10:32)
--- NOTE | 2021-06-03 11:15 | PM.DS ---
DS: Admitting Diagnosis Discharge Date 06/03/21 1115 Admitting Diagnosis Lung mass/fluid overload DS: Discharge Diagnosis Discharge Diagnosis (1) Lung mass: Code(s): R91.8 - Other nonspecific abnormal finding of lung field Status: Acute Assessment and Plan: Patient present with shortness of breath CTA from 05/03/21 found a mass in the left mainstem bronchus Seeing Dr. Mike at [facility] Productive cough noted with clear thick sputum Just finished a 7 day course of cipro and will complete a 10 day course of doxycycline Blood cultures in progress Pretty sure this is not a pneumonia CTA obtained to ensure no other cause for the shortness of breath (2) Hypertension: Code(s): I10 - Essential (primary) hypertension Status: Acute Assessment and Plan: BP 124/64 Continue home lisinopril 20mg pO daily Trend BP Adjust therapy as indicated (3) Chronic pain: Code(s): G89.29 - Other chronic pain Status: Acute Assessment and Plan: Sees a pain management physician In the process of finding a doctor Medications were adjusted (4) Morbid obesity with BMI of 50.0-59.9, adult: Code(s): E66.01 - Morbid (severe) obesity due to excess calories; Z68.43 - Body mass index [BMI] 50.0-59.9, adult Status: Acute Assessment and Plan: Carb consistent diet 1800 calories daily Lifestyle and diet modifications video tape duplicator consult (5) Obstructive sleep apnea on CPAP: Code(s): G47.33 - Obstructive sleep apnea (adult) (pediatric); Z99.89 - Dependence on other enabling machines and devices Status: Acute Assessment and Plan: Continue CPAP at nighttime (6) Fluid overload: Code(s): E87.70 - Fluid overload, unspecified Status: Acute Assessment and Plan: Bilateral lower extremity swelling left greater than right Venous doppler negative for DVT Lasix 40mg IV daily, give another dose tonight Trend volume status daily weight DS: Summary Hospital Course Hospital Course: Patient is a 56-year-old male with a past medical history of hypertension, chronic pain, hyperlipidemia, who presented to the ED with complaints of shortness of breath. Patient had been going to Dr. Mike for pulmonology treatment. He was placed on antibiotics for possible pneumonia however there is a mass that is noted on his chest CT. Patient was also noted to be fluid overloaded with 3 to 4+ pitting edema and was started on Lasix. After proper the diarrhea CTA was repeated and did show improvement only the mass was left over with air trapping. Patient had also been treated for chronic pain. Labs have been stable remained stable throughout the entire visit along with vital signs. I did talk to the patient about going back to Dr. Mike for a bronchoscopy and further workup. Patient had no other complaints including chest pain, shortness breast, fevers, sweats, chills, dizziness, fatigue. Status at Discharge Functional status at discharge: independent ambulation Overall status at discharge: patient is progressing back to baseline Time Spent with Patient Time attestation: Total time spent providing and/or coordinating discharge services: 52 minutes Time spent: Greater than 30 minutes Specific discharge activities: Diagnostic testing, chart review, developing a treatment plan, education, care coordination documentation, physical exam, result review Exam Const: General: cooperative, healthy appearing, no acute distress, well developed, alert and awake Nutritional Appearance: well nourished Orientation/consciousness: patient oriented x3 Limitations: no limitations HENMT: Head: normal to inspection Ears: hearing grossly normal bilaterally General nose exam: Normal external nose present Mouth: Yes Normal oral and palatal mucosa present, Yes lip normal and Yes tongue normal Teeth and gingiva: abnormal
--- NOTE | 2021-06-03 11:15 | P.DS_ITS ---
DS: Admitting Diagnosis Discharge Date 06/03/21 1115 Admitting Diagnosis Lung mass/fluid overload DS: Discharge Diagnosis Discharge Diagnosis (1) Lung mass: Code(s): R91.8 - Other nonspecific abnormal finding of lung field Status: Acute Assessment and Plan: * Patient present with shortness of breath * CTA from 05/03/21 found a mass in the left mainstem bronchus * Seeing Dr. Mike at [facility] * Productive cough noted with clear thick sputum * Just finished a 7 day course of cipro and will complete a 10 day course of doxycycline * Blood cultures in progress * Pretty sure this is not a pneumonia * CTA obtained to ensure no other cause for the shortness of breath (2) Hypertension: Code(s): I10 - Essential (primary) hypertension Status: Acute Assessment and Plan: * BP 124/64 * Continue home lisinopril 20mg pO daily * Trend BP * Adjust therapy as indicated (3) Chronic pain: Code(s): G89.29 - Other chronic pain Status: Acute Assessment and Plan: * Sees a pain management physician * In the process of finding a doctor * Medications were adjusted (4) Morbid obesity with BMI of 50.0-59.9, adult: Code(s): E66.01 - Morbid (severe) obesity due to excess calories; Z68.43 - Body mass index [BMI] 50.0-59.9, adult Status: Acute Assessment and Plan: * Carb consistent diet 1800 calories daily * Lifestyle and diet modifications * cross tie tram loader consult (5) Obstructive sleep apnea on CPAP: Code(s): G47.33 - Obstructive sleep apnea (adult) (pediatric); Z99.89 - Dependence on other enabling machines and devices Status: Acute Assessment and Plan: * Continue CPAP at nighttime (6) Fluid overload: Code(s): E87.70 - Fluid overload, unspecified Status: Acute Assessment and Plan: * Bilateral lower extremity swelling left greater than right * Venous doppler negative for DVT * Lasix 40mg IV daily, give another dose tonight * Trend volume status * daily weight DS: Summary Hospital Course Hospital Course: Patient is a 56-year-old male with a past medical history of hypertension, chronic pain, hyperlipidemia, who presented to the ED with complaints of shortness of breath. Patient had been going to Dr. Mike for pulmonology treatment. He was placed on antibiotics for possible pneumonia however there is a mass that is noted on his chest CT. Patient was also noted to be fluid overloaded with 3 to 4+ pitting edema and was started on Lasix. After proper the diarrhea CTA was repeated and did show improvement only the mass was left over with air trapping. Patient had also been treated for chronic pain. Labs have been stable remained stable throughout the entire visit along with vital signs. I did talk to the patient about going back to Dr. Mike for a bronchoscopy and further workup. Patient had no other complaints including chest pain, shortness breast, fevers, sweats, chills, dizziness, fatigue. Status at Discharge Functional status at discharge: independent ambulation Overall status at discharge: patient is progressing back to baseline Time Spent with Patient Time attestation: Total time spent providing and/or coordinating discharge services: 52 minutes Time spent: Greater than 30 minutes Specific discharge activities: Diagnostic testing, chart review, developing a treatment plan, education, care coordination documentation, physical e
[2021-06-03 11:29] LABS: Glucose Point of Care 346 mg/dl (65-105)
[2021-06-03] MEDS: MAGNESIUM SULF 4 GM/WATER100ML 4 GM/100 ML BAG IVPB (14:07)
[2021-06-03] MEDS: HYDROcodone/acetaminophen (*CRX) 10-325 MG TABLET 1 TAB PO (16:09)
== END 2021-06-03 16:30 | disposition home or self-care (01) | DRG 144 ==
LOC: ANHED 21:08 → ANH2MED 22:23 → ANH3MED 06-01 12:59
PROVIDERS: Admitting Provider Internal Medicine; Emergency Provider Emergency Medicine; Visit Provider Nurse Practitioner
DX: R91.8 Other nonspecific abnormal finding of lung field (principal); E87.70 Fluid overload, unspecified; I10 Essential (primary) hypertension; G89.29 Other chronic pain; E66.01 Morbid (severe) obesity due to excess calories; Z68.43 Body mass index [BMI] 50.0-59.9, adult; G47.33 Obstructive sleep apnea (adult) (pediatric); E78.5 Hyperlipidemia, unspecified; K21.9 Gastro-esophageal reflux disease without esophagitis; Z90.49 Acquired absence of other specified parts of digestive tract
CPT/HCPCS: 36415; 71046; 71275; 80053; 82948; 83605; 83690; 83735; 84484; 85025; 85380; 85610; 85730; 87040; 93005; 93970; 94640; 96372; 96374; 96375; 96376; 99285; A9270; G0378; G0379; J1170; J1644; J1815; J1940; J1956; J3475; J7120; Q9967

== ENCOUNTER 2021-06-21 21:16 | Emergency (ER) | payer OTHER, SELFPAY ==
--- NOTE | ~2021-06-21 | XR_ITS ---
XR chest 2V DATE: 06/21/2021 21:56 INDICATION: Chest pain TECHNIQUE: AP and lateral chest COMPARISON: 06/22/2019 CT pulmonary scan 06/12/2021 2 view chest FINDINGS: Heart size appears normal. No pulmonary infiltrate or consolidation, pleural effusion or pu lmonary vascular congestion or pneumothorax is evident. Degenerative spurring of the thoracic spine. IMPRESSION: No active cardiopulmonary disease Reviewed, dictated and finalized at location A.
--- NOTE | ~2021-06-21 | CT_ITS ---
EXAMINATION: CTA chest PE protocol DATE: 06/21/2021 22:23 INDICATION: Intermittent chest pain today. Recent bronchoscopy with biopsy. TECHNIQUE: Computed tomography angiography (CTA) of the chest was performed with 100 mL Omnipaque-350 intravenous contrast timed to evaluate the pulmonary arteries. Coronal maximum intensity projection 3D-reconstructions were created by the technologist. Automated exposure control and iterative reconst ruction technique were employed. Exam dose: 1110.57 mGy-cm total exam DLP. COMPARISON: 06/13/2021 2 view chest 06/03/2021 CTA chest FINDINGS: No pulmonary embolism is evident. No thoracic aortic aneurysm or dissection. Heart size is within normal range. No pericardial or pleural effusion. No hilar or mediastinal mass lesion or lymphadenopathy. Pulmonary infiltrate or consolidation or pulmonary mass lesion is detected. Status post cholecystectomy. Normal morphology of the adrenal glands. No suspicious osteolytic or osteoblastic lesions. IMPRESSION: No evidence of pulmonary embolism Reviewed, dictated and finalized at [facility]. Reviewed, dictated and finalized at [facility].
[2021-06-21 21:20] VITALS: BP 130/75; PULSE 92; RESP 20; TEMP 36.4; O2SAT 98
--- NOTE | 2021-06-21 21:32 | ECG_ITS ---
Measurements Intervals [place] Rate: 70 P: 29 ME: 172 QRS: -46 QRSD: 118 T: 39 QT: 445 QTc: 483 Interpretive Statements SINUS RHYTHM LEFT AXIS DEVIATION ABNORMAL ECG COMPARED TO ECG 06/02/2021 21:44:03 NO SIGNIFICANT CHANGE Electronically Signed On 06-22-2021 17:10:35 CDT by Olman Shannon M.D.
[2021-06-21 21:50] LABS: Basophils Percent Auto 0.5 % (0.2-1.2); Eosinophils Absolute Auto 0.2 K/mm3 (0-0.3); Eosinophils Percent Auto 3.9 % (0-4.4); Hematocrit 39.2 % (42.0-52.0); Hemoglobin 12.2 g/dL (14.0-18.0); Immature Granulocyte Absolute 0.02 K/mm3 (0.00-0.031); Immature Granulocyte Percent A 0.4 % (0-0.5); Lymphocytes Absolute Auto 1.08 K/mm3 (0.9-3.2); Lymphocytes Percent Auto 19.3 % (18.3-44.2); Mean Corpuscular HGB Conc 31.1 g/dl (32-36); Mean Corpuscular Hemoglobin 26.1 pg (26-34); Mean Corpuscular Volume 83.9 fl (80-100); Mean Platelet Volume 9.9 fl (7.4-10.4); Monocytes Absolute Auto 0.5 K/mm3 (0.1-0.6); Monocytes Percent Auto 8.2 % (2.6-8.5); Neutrophils Absolute Auto 3.8 K/mm3 (1.3-6.7); Neutrophils Percent Auto 67.7 % (45.5-73.1); Platelet Count Result 279 k/mm3 (150-375); Red Blood Count 4.67 M/mm3 (4.6-6.20); White Blood Count 5.6 K/mm3 (4.5-10.0)
[2021-06-21 22:00] LABS: Alanine Aminotransferase 27 U/L (4-50); Albumin Level 3.8 g/dL (3.5-5.1); Alkaline Phosphatase 91 U/L (38-126); Anion Gap 8 mmol/L (8-16); Aspartate Amino Transferase 35 U/L (17-59); Bilirubin,Total 0.8 mg/dL (0.2-1.3); Blood Urea Nitrogen 15 mg/dL (9-20); Calcium 8.6 mg/dL (8.4-10.2); Carbon Dioxide 30 mmol/L (22-30); Chloride 98 mmol/L (98-107); Estimated Glomerular Filt Rate > 60; Glucose 224 mg/dL (65-110); Lipase 167 U/L (23-300); Potassium 3.7 mmol/L (3.4-5.0); Sodium 136 mmol/L (137-145)
[2021-06-21 22:02] VITALS: BP 123/68; PULSE 65; RESP 23; O2SAT 97
[2021-06-21 22:02] LABS: Prothrombin Time 12.9 Seconds (11.1-14.7)
[2021-06-21 22:03] LABS: Partial Thromboplastin Time 30.1 SECONDS (22.3-36.8)
[2021-06-21 22:11] LABS: Troponin I < 0.012 ng/mL (0.000-0.034)
--- NOTE | 2021-06-21 22:36 | ED.GENADULT ---
HPI - General Adult General Chief complaint: Chest Pain Stated complaint: chest pain Time Seen by Provider: 06/21/21 21:40 History of Present Illness HPI narrative: Patient 56-year-old gentleman who presents to emergency department with chief complaint of burning chest. Patient reports that he was seen at [place] after he had a lesion found in his lungs. The patient reports he had a bronchoscopy with biopsy. The patient reports that he started having burning in his chest and reports that he decided to come to the emergency department to be evaluated. Patient denies shortness of breath denies hemoptysis denies sharp pleuritic pain. Patient reports symptoms or not improved by anything or they worsened by anything. Related Data Home Medications Medication Instructions Recorded Confirmed allopurinol 300 mg PO HS 08/06/19 05/31/21 atorvastatin 80 mg PO HS 08/06/19 05/31/21 citalopram 20 mg PO DAILY 08/06/19 05/31/21 dicyclomine 10 mg PO BID PRN 08/06/19 05/31/21 lisinopril 20 mg PO DAILY 08/06/19 05/31/21 albuterol sulfate 2 puff INHALATION Q4-5H PRN 05/31/21 05/31/21 diclofenac sodium 50 mg PO DAILY 05/31/21 05/31/21 pantoprazole 40 mg PO BID 05/31/21 05/31/21 Allergies Allergy/AdvReac Type Severity Reaction Status Date / Time diazepam Allergy Severe Other Verified 05/31/21 19:32 aspirin Allergy Intermediate Rash Verified 05/31/21 19:32 NSAIDS (Non-Steroidal Allergy Intermediate Rash Verified 05/31/21 19:32 Anti-Inflamma erythromycin base Allergy Mild Unknown Verified 05/31/21 19:32 latex Allergy Mild Unknown Verified 05/31/21 19:32 butorphanol Allergy Unknown Unknown Verified 05/31/21 19:32 Cephalosporins Allergy Unknown Unknown Verified 05/31/21 19:32 fentanyl Allergy Unknown Rash Verified 05/31/21 19:32 ketorolac Allergy Unknown Unknown Verified 05/31/21 19:32 morphine Allergy Unknown Unknown Verified 05/31/21 19:32 nalbuphine Allergy Unknown Unknown Verified 05/31/21 19:32 orphenadrine Allergy Unknown Unknown Verified 05/31/21 19:32 Review of Systems Review of Systems: A 10 system review of systems was completed on the patient and is negative except for what is stated in the HPI. Nursing and ancillary documentation was reviewed. [facility] Past Medical History Medical History (Updated 06/21/21 @ 23:09 by Dedrick Tang MD) History of gout History of hyperlipidemia History of hypertension Type 2 diabetes mellitus Surgical History Surgical History Hx of cholecystectomy Family History Family History Other Diabetes mellitus Family history of malignant neoplasm Hypertension Social History Social History Smoking status: Never smoker Alcohol intake: never Substance use: current Substance use type: marijuana Other substance usage details: daily Gender identity (if verbalized by the patient): Male Spiritual care concerns: No Exam Narrative: GENERAL: Well-appearing, well-nourished, and in no acute distress. HEAD: Normocephalic, atraumatic. EYES: PERRLA and EOMI. ENT: Nares clear, no rhinorrhea or epistaxis. Mucous membranes moist. NECK: Supple. CHEST: Clear to auscultation. No respiratory distress. HEART: Regular rate and rhythm. No murmur heard. Normal peripheral pulses. ABDOMEN: Soft, nontender, nondistended, normal active bowel sounds. EXTREMITIES: Normal range of motion. No edema. SKIN: Warm, dry, no rash. NEURO: No focal deficits. Alert and oriented x3. PSYCH: Normal mood and affect. Course Vital Signs Vital signs: Vital Signs Temperature 36.4 C L 06/21/21 21:20 Pulse Rate 92 06/21/21 21:20 Respiratory Rate 20 06/21/21 21:20 Blood Pressure 130/75 06/21/21 21:20 Pulse Oximetry 98 06/21/21 21:20 Temperature 36.4 C L 06/21/21 21:20 Pulse Rate 65 06/21/21 2
--- NOTE | 2021-06-21 23:03 | PC.NURSE ---
patient upset regarding pain medication issue. AMA papers signed. Dr. torres. Removed IV. patient ambulated out with mother
== END 2021-06-21 23:10 | disposition left against medical advice (07) ==
PROVIDERS: Emergency Medicine; Emergency Provider Emergency Medicine
DX: R07.89 Other chest pain (principal); M10.9 Gout, unspecified; E78.5 Hyperlipidemia, unspecified; I10 Essential (primary) hypertension; E11.9 Type 2 diabetes mellitus without complications; R94.31 Abnormal electrocardiogram [ECG] [EKG]
CPT/HCPCS: 36415; 71046; 71275; 80053; 83690; 84484; 85025; 85610; 85730; 93005; 99284; Q9967

== ENCOUNTER 2021-07-14 05:38 | Emergency (ER) | payer OTHER, SELFPAY ==
--- NOTE | ~2021-07-14 | XR_ITS ---
EXAMINATION: XR chest 2V EXAM DATE: 07/14/2021 06:34 INDICATION: Chest pain. TECHNIQUE: Frontal and lateral projections of the chest obtained and reviewed. Comparison is made to prior examination from 06/21/2021. FINDINGS: There are cholecystectomy clips. The lungs are clear. There are no pleural effusions. Th e cardiomediastinal silhouette is within normal limits. There is no pneumothorax suspected. The bon es and soft tissues are unremarkable. There is no significant interval change. IMPRESSION: No acute cardiopulmonary findings. Reviewed, dictated and finalized at [facility].
--- NOTE | ~2021-07-14 | CT_ITS ---
EXAMINATION: CT diagnostic chest wo con EXAM DATE: 07/14/2021 07:47 INDICATION: Left lower chest pain status post bronchoscopy. Shortness of breath. TECHNIQUE: Spiral CT of the chest without contrast. Axial, coronal and sagittal images of the chest were reviewed. Coronal maximum intensity pixel images of chest reviewed. The dose-length product ( DLP) for this examination was 1045.31 mGy-cm. The exposure was tailored according to patient size (a uto mA exposure control), and iterative reconstruction (ASIR) was used as additional dose reduction t echnique. Comparison is made to prior examination from 06/21/2021. FINDINGS: There is 3 mm right lower lobe granuloma unchanged. There are no pleural or pericardial ef fusions. Tracheobronchial tree is patent. There is no mediastinal, hilar or axillary lymphadenopa thy. There is no pneumothorax. Heart normal in size. There is mild coronary arterial calcificat ion, arterial sclerosis. There are cholecystectomy clips. No acute fractures identified. IMPRESSION: Unremarkable tracheobronchial tree. No acute cardiopulmonary findings. Reviewed, dictated and finalized at [facility]. IMPRESSION: Unremarkable tracheobronchial tree. No acute cardiopulmonary findin gs.
[2021-07-14 05:48] VITALS: BP 151/71; PULSE 62; RESP 12; TEMP 36.3; O2SAT 97
[2021-07-14 05:50] VITALS: PULSE 61; O2SAT 98
--- NOTE | 2021-07-14 06:03 | ECG_ITS ---
Measurements Intervals [place] Rate: 62 P: 50 TX: 193 QRS: -38 QRSD: 113 T: 23 QT: 447 QTc: 454 Interpretive Statements SINUS RHYTHM LEFT AXIS DEVIATION [QRS AXIS < -30] PATTERN CONSISTENT WITH PULMONARY DISEASE NONSPECIFIC INTRAVENTRICULAR CONDUCTION DELAY BORDERLINE ECG COMPARED TO ECG 06/21/2021 21:35:04 NO SIGNIFICANT CHANGE Electronically Signed On 07-14-2021 17:55:27 CDT by Ghanshyam Madison M.D.
[2021-07-14 06:44] VITALS: BP 138/68; PULSE 97; RESP 30; O2SAT 98
[2021-07-14 07:04] LABS: Basophils Percent Auto 0.8 % (0.2-1.2); Eosinophils Absolute Auto 0.2 K/mm3 (0-0.3); Eosinophils Percent Auto 4.8 % (0-4.4); Hematocrit 39.6 % (42.0-52.0); Immature Granulocyte Absolute 0.03 K/mm3 (0.00-0.031); Immature Granulocyte Percent A 0.6 % (0-0.5); Lymphocytes Percent Auto 20.1 % (18.3-44.2); Mean Corpuscular HGB Conc 30.3 g/dl (32-36); Mean Corpuscular Hemoglobin 25.8 pg (26-34); Mean Platelet Volume 10.1 fl (7.4-10.4); Monocytes Absolute Auto 0.5 K/mm3 (0.1-0.6); Monocytes Percent Auto 9.6 % (2.6-8.5); Neutrophils Absolute Auto 3.2 K/mm3 (1.3-6.7); Neutrophils Percent Auto 64.1 % (45.5-73.1); Platelet Count Result 242 k/mm3 (150-375); Red Blood Count 4.66 M/mm3 (4.6-6.20)
[2021-07-14 07:15] LABS: Alanine Aminotransferase 25 U/L (4-50); Albumin Level 3.5 g/dL (3.5-5.1); Alkaline Phosphatase 80 U/L (38-126); Anion Gap 6 mmol/L (8-16); Aspartate Amino Transferase 25 U/L (17-59); Bilirubin,Total 0.9 mg/dL (0.2-1.3); Blood Urea Nitrogen 16 mg/dL (9-20); Calcium 8.4 mg/dL (8.4-10.2); Carbon Dioxide 30 mmol/L (22-30); Chloride 100 mmol/L (98-107); Estimated CRCL calculation 186 ml/min; Estimated Glomerular Filt Rate > 60; Glucose 236 mg/dL (65-110); Potassium 3.5 mmol/L (3.4-5.0); Sodium 136 mmol/L (137-145)
--- NOTE | 2021-07-14 07:15 | ED.SOB ---
HPI - SOB/Dyspnea General Chief Complaint: Shortness of Breath/Dyspnea Stated Complaint: left lung pain Time Seen by Provider: 07/14/21 07:15 Source: patient Mode of arrival: ambulatory Limitations: no limitations History of Present Illness HPI Narrative: Patient is 56 years old drove himself to the emergency room complaining of burning sensation left lower ribs anteriorly started 4 days ago, constant, worse with breathing and using night CPAP. 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 And was complicated with bleeding which resolved in 2 days. Patient denies any fever, chills, nausea, vomiting, shortness of breath. The procedure was done at [facility]. Related Data Home Medications Medication Instructions Recorded Confirmed allopurinol 300 mg PO HS 08/06/19 05/31/21 atorvastatin 80 mg PO HS 08/06/19 05/31/21 citalopram 20 mg PO DAILY 08/06/19 05/31/21 dicyclomine 10 mg PO BID PRN 08/06/19 05/31/21 lisinopril 20 mg PO DAILY 08/06/19 05/31/21 albuterol sulfate 2 puff INHALATION Q4-5H PRN 05/31/21 05/31/21 diclofenac sodium 50 mg PO DAILY 05/31/21 05/31/21 pantoprazole 40 mg PO BID 05/31/21 05/31/21 Allergies Allergy/AdvReac Type Severity Reaction Status Date / Time diazepam Allergy Severe Other Verified 07/14/21 05:52 aspirin Allergy Intermediate Rash Verified 07/14/21 05:52 NSAIDS (Non-Steroidal Allergy Intermediate Rash Verified 07/14/21 05:52 Anti-Inflamma erythromycin base Allergy Mild Unknown Verified 07/14/21 05:52 latex Allergy Mild Unknown Verified 07/14/21 05:52 butorphanol Allergy Unknown Unknown Verified 07/14/21 05:52 Cephalosporins Allergy Unknown Unknown Verified 07/14/21 05:52 fentanyl Allergy Unknown Rash Verified 07/14/21 05:52 ketorolac Allergy Unknown Unknown Verified 07/14/21 05:52 morphine Allergy Unknown Unknown Verified 07/14/21 05:52 nalbuphine Allergy Unknown Unknown Verified 07/14/21 05:52 orphenadrine Allergy Unknown Unknown Verified 07/14/21 05:52 Review of Systems Review of Systems: CONSTITUTIONAL: Denies fever, chills, or sweats. EYES: Denies visual changes, redness, or discharge. ENT: Denies rhinorrhea, congestion, sore throat, or otalgia. CARDIOVASCULAR: Denies chest pain, palpitations, or edema. RESPIRATORY: Denies cough or dyspnea. GASTROINTESTINAL: Denies abdominal pain, nausea, vomiting, or diarrhea. GENITOURINARY: Denies dysuria or hematuria. SKIN: Denies rash or itching. MUSCULOSKELETAL: Denies back pain, joint pain, or myalgia. NEUROLOGIC: Denies headache, numbness, or weakness. PSYCHIATRIC: Denies anxiety or depression. [facility] Past Medical History Medical History (Updated 07/14/21 @ 08:21 by Brooke Rosas MD) History of gout History of hyperlipidemia History of hypertension Type 2 diabetes mellitus Surgical History Surgical History Hx of cholecystectomy Family History Family History Other Diabetes mellitus Family history of malignant neoplasm Hypertension Social History Social History Smoking status: Never smoker Alcohol intake: never Substance use: current Substance use type: marijuana Other substance usage details: daily Gender identity (if verbalized by the patient): Male Spiritual care concerns: No Exam Narrative: General appearance: Well-developed, well-nourished. Patient laying down in bed, does not look in pain or distress. Skin: Normal color Head: Normocephalic, nontraumatic Eyes: Clear conjunctiva ENT: Oropharynx normal, ears normal, nose normal Neck: Supple, nontender Chest and respiratory: Airway patent, no respiratory distress, no accessory muscle use Heart: Regular rate/rhythm Abdomen: Soft, nontender, no organomegaly, quiet bowel sounds Vascular: Normal peripheral pulses, normal capillary ref
[2021-07-14 07:27] LABS: Troponin I < 0.012 ng/mL (0.000-0.034)
[2021-07-14] MEDS: ONDANSETRON INJ 4 MG/2 ML VIAL IV PUSH (08:19)
[2021-07-14] MEDS: HYDROmorphone HCL INJ (*CRX) 1 MG/ML SYR IV PUSH (08:20)
[2021-07-14 08:38] VITALS: BP 149/87; PULSE 82; RESP 16; O2SAT 96
== END 2021-07-14 08:44 | disposition home or self-care (01) ==
PROVIDERS: Emergency Medicine; Emergency Provider Emergency Medicine
DX: G89.29 Other chronic pain (principal); R94.31 Abnormal electrocardiogram [ECG] [EKG]; M10.9 Gout, unspecified; I10 Essential (primary) hypertension; E78.5 Hyperlipidemia, unspecified; E11.9 Type 2 diabetes mellitus without complications
CPT/HCPCS: 36415; 71046; 71250; 80053; 84484; 85025; 93005; 96374; 96375; 99284; J1170; J2405

== ENCOUNTER 2021-08-20 18:25 | Emergency (ER) | payer OTHER, SELFPAY ==
[2021-08-20 18:29] VITALS: BP 153/69; PULSE 78; RESP 20; TEMP 36.3; O2SAT 100
--- NOTE | 2021-08-20 19:43 | ED.EXTPRO ---
HPI - Extremity Problem General Chief complaint: Extremity Problem,Nontraumatic Stated complaint: lump on left leg Time Seen by Provider: 08/20/21 18:58 History of Present Illness HPI Narrative: Patient is a 56-year-old male who presents ER with discomfort to his left walter. Patient reports he has had a lump develop over the last couple of days. He was seen by his PCP and he reports he started on a water pill to help with some edema. He denies any trauma to the leg. He thinks he could have a cyst deeper in his leg. He has no new numbness or tingling. No difficulty with ambulation. He reports he has been taking Tylenol for pain. No chest pain or chest pressure. No exertional dyspnea. Related Data Home Medications Medication Instructions Recorded Confirmed allopurinol 300 mg tablet 300 mg PO HS 08/06/19 05/31/21 atorvastatin 80 mg tablet 80 mg PO HS 08/06/19 05/31/21 citalopram 20 mg tablet 20 mg PO DAILY 08/06/19 05/31/21 dicyclomine 10 mg capsule 10 mg PO BID PRN Abdominal 08/06/19 05/31/21 Discomfort lisinopril 20 mg tablet 20 mg PO DAILY 08/06/19 05/31/21 albuterol sulfate 90 mcg/actuation 2 puff inhalation Q4-5H PRN 05/31/21 05/31/21 aerosol inhaler Wheezing diclofenac sodium 50 mg 50 mg PO DAILY 05/31/21 05/31/21 tablet,delayed release pantoprazole 40 mg tablet,delayed 40 mg PO BID 05/31/21 05/31/21 release Allergies Allergy/AdvReac Type Severity Reaction Status Date / Time diazepam Allergy Severe Other Verified 07/14/21 05:52 aspirin Allergy Intermediate Rash Verified 07/14/21 05:52 NSAIDS (Non-Steroidal Allergy Intermediate Rash Verified 07/14/21 05:52 Anti-Inflamma erythromycin base Allergy Mild Unknown Verified 07/14/21 05:52 latex Allergy Mild Unknown Verified 07/14/21 05:52 butorphanol Allergy Unknown Unknown Verified 07/14/21 05:52 Cephalosporins Allergy Unknown Unknown Verified 07/14/21 05:52 fentanyl Allergy Unknown Rash Verified 07/14/21 05:52 ketorolac Allergy Unknown Unknown Verified 07/14/21 05:52 morphine Allergy Unknown Unknown Verified 07/14/21 05:52 nalbuphine Allergy Unknown Unknown Verified 07/14/21 05:52 orphenadrine Allergy Unknown Unknown Verified 07/14/21 05:52 Review of Systems Review of Systems: All systems reviewed & are unremarkable except as noted in HPI and below Constitutional: Constitutional: Denies chills, Denies fatigue and Denies fever(s) Cardiovascular: Cardiovascular: Denies chest pain, Denies rapid heart rate and Denies radiating jaw, neck or arm pain Respiratory: Respiratory: Denies cough and Denies dyspnea Musculoskeletal: Musculoskeletal: Denies myalgias, Denies arthralgias, Denies joint swelling and Denies muscle cramps Comments: Left waletr pain Integumentary/Breasts: Skin/Breast: Denies erythema, Denies rash and Denies skin ulcer Neurologic: Denies focal weakness and Denies numbness PMFSH Past Medical History Medical History (Updated 08/20/21 @ 19:50 by Shawn Trammell MD) History of gout History of hyperlipidemia History of hypertension Type 2 diabetes mellitus Surgical History Surgical History Hx of cholecystectomy Family History Family History Other Diabetes mellitus Family history of malignant neoplasm Hypertension Social History Social History Smoking status: Never smoker Alcohol intake: never Substance use: current Substance use type: marijuana Other substance usage details: daily Gender identity (if verbalized by the patient): Male Spiritual care concerns: No Exam Narrative: GENERAL: Well-appearing, well-nourished, and in no acute distress. HEAD: Normocephalic, atraumatic. EXTREMITIES: Normal range of motion. 2+ edema. Legs appear symmetric bilaterally. No discernible mass or cyst palpated at the left walter. Patient does have chronic venous cas
== END 2021-08-20 20:03 | disposition home or self-care (01) ==
PROVIDERS: Emergency Provider Emergency Medicine
DX: M79.605 Pain in left leg (principal); E78.5 Hyperlipidemia, unspecified; M10.9 Gout, unspecified; I10 Essential (primary) hypertension; E11.9 Type 2 diabetes mellitus without complications
CPT/HCPCS: 99281

== ENCOUNTER 2021-10-08 19:31 | Emergency (ER) | payer OTHER, SELFPAY ==
[2021-10-08 19:36] VITALS: BP 147/74; PULSE 82; RESP 20; TEMP 36.8; O2SAT 99
--- NOTE | 2021-10-08 20:27 | ED.BACK ---
HPI - Back Pain/Injury General Chief Complaint: Back Pain/Injury Stated Complaint: lower back pain Time Seen by Provider: 10/08/21 19:53 History of Present Illness HPI Narrative: Patient is a 56-year-old male who presents ER with low back pain. Reports he has a tear in the muscle above his left knee that is being evaluated by orthopedic surgery [facility]. He is supposed to get an MRI. Is been causing him to walk with a limp which is caused him to start having low back pain. He has been applying topical lidocaine patches without improvement. He does not have any oral medications that he can take due to numerous allergies. No fevers or chills or sweats. No focal weakness or numbness in lower extremity or groin. He has not fallen or struck his back or his head. He would like to obtain some medication to treat his pain over the weekend until he can see his primary care doctor on 10/11/2021. Related Data Home Medications Medication Instructions Recorded Confirmed allopurinol 300 mg tablet 300 mg PO HS 08/06/19 05/31/21 atorvastatin 80 mg tablet 80 mg PO HS 08/06/19 05/31/21 citalopram 20 mg tablet 20 mg PO DAILY 08/06/19 05/31/21 dicyclomine 10 mg capsule 10 mg PO BID PRN Abdominal 08/06/19 05/31/21 Discomfort lisinopril 20 mg tablet 20 mg PO DAILY 08/06/19 05/31/21 albuterol sulfate 90 mcg/actuation 2 puff inhalation Q4-5H PRN 05/31/21 05/31/21 aerosol inhaler Wheezing diclofenac sodium 50 mg 50 mg PO DAILY 05/31/21 05/31/21 tablet,delayed release pantoprazole 40 mg tablet,delayed 40 mg PO BID 05/31/21 05/31/21 release Allergies Allergy/AdvReac Type Severity Reaction Status Date / Time diazepam Allergy Severe Other Verified 10/08/21 19:40 aspirin Allergy Intermediate Rash Verified 10/08/21 19:40 NSAIDS (Non-Steroidal Allergy Intermediate Rash Verified 10/08/21 19:40 Anti-Inflamma erythromycin base Allergy Mild Unknown Verified 10/08/21 19:40 latex Allergy Mild Unknown Verified 10/08/21 19:40 butorphanol Allergy Unknown Unknown Verified 10/08/21 19:40 Cephalosporins Allergy Unknown Unknown Verified 10/08/21 19:40 fentanyl Allergy Unknown Rash Verified 10/08/21 19:40 ketorolac Allergy Unknown Unknown Verified 10/08/21 19:40 morphine Allergy Unknown Unknown Verified 10/08/21 19:40 nalbuphine Allergy Unknown Unknown Verified 07/14/21 05:52 orphenadrine Allergy Unknown Unknown Verified 07/14/21 05:52 Review of Systems Review of Systems: All systems reviewed & are unremarkable except as noted in HPI and below Constitutional: Constitutional: Denies chills and Denies fever(s) Gastrointestinal: Gastrointestinal: Denies abdominal pain, Denies nausea and Denies vomiting Musculoskeletal: Musculoskeletal: Reports back pain, Reports arthralgias, Denies joint swelling and Denies muscle cramps Neurologic: Denies focal weakness and Denies numbness PMFSH Past Medical History Medical History (Updated 10/08/21 @ 20:34 by Shawn Trammell MD) History of gout History of hyperlipidemia History of hypertension Type 2 diabetes mellitus Surgical History Surgical History Hx of cholecystectomy Family History Family History Other Diabetes mellitus Family history of malignant neoplasm Hypertension Social History Social History Smoking status: Never smoker Alcohol intake: never Substance use: current Substance use type: marijuana Other substance usage details: daily Gender identity (if verbalized by the patient): Male Spiritual care concerns: No Exam Narrative: GENERAL: Well-appearing, well-nourished, and in no acute distress. HEAD: Normocephalic, atraumatic. CHEST: Clear to auscultation. No respiratory distress. HEART: Regular rate and rhythm. Normal peripheral pulses. Back: Tender palpation L4 and left paraspina
[2021-10-08] MEDS: HYDROcodone/acetaminophen (*CRX) 7.5-325 MG TABLET 1 TAB PO (20:45)
[2021-10-08 21:10] VITALS: PULSE 74; RESP 18; O2SAT 97
== END 2021-10-08 21:10 | disposition home or self-care (01) ==
PROVIDERS: Emergency Provider Emergency Medicine
DX: M54.50 Low back pain, unspecified (principal); I10 Essential (primary) hypertension; E11.9 Type 2 diabetes mellitus without complications; E78.5 Hyperlipidemia, unspecified; M10.9 Gout, unspecified
CPT/HCPCS: 99283; A9270

== ENCOUNTER 2021-12-18 10:30 | Emergency (ER) | payer OTHER, SELFPAY ==
--- NOTE | ~2021-12-18 | CT_ITS ---
EXAMINATION: CT lumbar spine wo con DATE: 12/18/2021 11:34 INDICATION: Midline tenderness to the lower lumbar spine after fall TECHNIQUE: Computed tomography (CT) of the lumbar spine was performed without intravenous contrast. T he dose-length product was 1310.14 mGy-cm. COMPARISON: 10/24/2019 FINDINGS: Mild disc narrowing at L5-S1. Vertebral body heights are maintained. No acute fracture, sub luxation or dislocation. Sacrum is unremarkable. No evidence for spondylolisthesis. Mild facet degene rative changes at L4-5 and L5-S1. No significant paraspinal soft tissue abnormality. IMPRESSION: 1. No acute abnormality of the lumbar spine. 2: Mild lumbar spondylosis. Reviewed, dictated and finalized at location [facility].
[2021-12-18 10:35] VITALS: BP 174/78; PULSE 84; RESP 16; TEMP 36.3; O2SAT 99
[2021-12-18] MEDS: HYDROcodone/acetaminophen (*CRX) 5-325 MG TABLET 1 TAB PO (11:36)
--- NOTE | 2021-12-18 13:03 | ED.BACK ---
HPI - Back Pain/Injury General Chief Complaint: Back Pain/Injury Stated Complaint: fell two days ago, lower back pain Time Seen by Provider: 12/18/21 11:05 History of Present Illness HPI Narrative: Patient is a 56-year-old male with a history of chronic back pain here for evaluation of low back pain after a fall 2 days ago. Patient states that he felt his legs lock up , causing him to fall and hit his neck against the ground. He went to [place] [facility] shortly afterwards, got pain medicine, but did not have imaging done of his back. He presents today requesting imaging and also requesting 2 mg of Dilaudid for his pain. Patient presents frequently for his chronic back pain. He states pain remains in his low back and does not radiate. No incontinence or retention of bowel or bladder, fevers or chills, history of IVDU, saddle anesthesia. Related Data Home Medications Medication Instructions Recorded Confirmed allopurinol 300 mg tablet 300 mg PO HS 08/06/19 05/31/21 atorvastatin 80 mg tablet 80 mg PO HS 08/06/19 05/31/21 citalopram 20 mg tablet 20 mg PO DAILY 08/06/19 05/31/21 dicyclomine 10 mg capsule 10 mg PO BID PRN Abdominal 08/06/19 05/31/21 Discomfort lisinopril 20 mg tablet 20 mg PO DAILY 08/06/19 05/31/21 albuterol sulfate 90 mcg/actuation 2 puff inhalation Q4-5H PRN 05/31/21 05/31/21 aerosol inhaler Wheezing diclofenac sodium 50 mg 50 mg PO DAILY 05/31/21 05/31/21 tablet,delayed release pantoprazole 40 mg tablet,delayed 40 mg PO BID 05/31/21 05/31/21 release Allergies Allergy/AdvReac Type Severity Reaction Status Date / Time diazepam Allergy Severe Other Verified 12/18/21 10:31 aspirin Allergy Intermediate Rash Verified 12/18/21 10:31 NSAIDS (Non-Steroidal Allergy Intermediate Rash Verified 12/18/21 10:31 Anti-Inflamma erythromycin base Allergy Mild Unknown Verified 12/18/21 10:31 latex Allergy Mild Unknown Verified 12/18/21 10:31 butorphanol Allergy Unknown Unknown Verified 12/18/21 10:31 Cephalosporins Allergy Unknown Unknown Verified 12/18/21 10:31 fentanyl Allergy Unknown Rash Verified 12/18/21 10:31 ketorolac Allergy Unknown Unknown Verified 12/18/21 10:31 morphine Allergy Unknown Unknown Verified 12/18/21 10:31 nalbuphine Allergy Unknown Unknown Verified 07/14/21 05:52 orphenadrine Allergy Unknown Unknown Verified 07/14/21 05:52 Review of Systems Review of Systems: Gen: Denies fevers or chills Eyes: Denies eye pain or visual change ENT: Denies congestion Respiratory: Denies shortness of breath or cough CV: Denies chest pain or palpitations GI: Denies abdominal pain nausea, emesis or diarrhea : denies burning, urgency, frequency or hematuria Musculoskeletal: reports back pain. Neuro: Denies numbness, tingling, weakness or focal weakness Skin: Denies rash Except as documented, all other systems reviewed and negative [facility] Past Medical History Medical History (Updated 12/18/21 @ 11:56 by Deepika Aleman PA-C) History of gout History of hyperlipidemia History of hypertension Type 2 diabetes mellitus Surgical History Surgical History Hx of cholecystectomy Family History Family History Other Diabetes mellitus Family history of malignant neoplasm Hypertension Social History Social History Smoking status: Never smoker Alcohol intake: never Substance use: current Substance use type: marijuana Other substance usage details: daily Gender identity (if verbalized by the patient): Male Spiritual care concerns: No Exam Narrative: APPEARANCE: Obese, well-appearing Head: Normocephalic and atraumatic. EYES: PERRLA/EOMI, conjunctivae clear NOSE: No nasal drainage EARS: External ear normal in appearance NECK: Supple. RESPIRATORY: Airway patent, respirations nonlabored. CARDIOVASCULAR: Regular ra
== END 2021-12-18 12:10 | disposition home or self-care (01) ==
PROVIDERS: Emergency Provider Emergency Medicine
DX: M47.816 Spondylosis without myelopathy or radiculopathy, lumbar region (principal); E78.5 Hyperlipidemia, unspecified; I10 Essential (primary) hypertension; E11.9 Type 2 diabetes mellitus without complications; M10.9 Gout, unspecified
CPT/HCPCS: 72131; 99284; A9270

== ENCOUNTER 2022-01-07 01:15 | Emergency (ER) | payer OTHER, SELFPAY ==
[2022-01-07 01:40] VITALS: BP 163/76; PULSE 76; RESP 16; TEMP 36.7; O2SAT 100
[2022-01-07] MEDS: HYDROcodone/acetaminophen (*CRX) 5-325 MG TABLET 1 TAB PO (02:43)
[2022-01-07] MEDS: ONDANSETRON HCL ODT 4 MG TABLET PO (02:56)
--- NOTE | 2022-01-07 03:11 | ED.GENADULT ---
HPI - General Adult General Chief complaint: Unspecified Stated complaint: pain in lymph nodes Time Seen by Provider: 01/07/22 02:00 History of Present Illness HPI narrative: Patient is a 56-year-old male who presents ER with reports of lymph node pain. He was evaluated yesterday at [facility] where he had blood work performed as well as a CT scan. CT scan showed pelvic lymphadenopathy. Patient's blood work was normal. Patient reports he gave himself a Trulicity injection 3 days ago and symptoms began after that. He has discomfort in the groin and in his axilla. He has no fevers or chills or sweats. No abscesses that required drainage. He continues to feel uncomfortable and came to the ER for further evaluation. Related Data Home Medications Medication Instructions Recorded Confirmed allopurinol 300 mg tablet 300 mg PO HS 08/06/19 05/31/21 atorvastatin 80 mg tablet 80 mg PO HS 08/06/19 05/31/21 citalopram 20 mg tablet 20 mg PO DAILY 08/06/19 05/31/21 dicyclomine 10 mg capsule 10 mg PO BID PRN Abdominal 08/06/19 05/31/21 Discomfort lisinopril 20 mg tablet 20 mg PO DAILY 08/06/19 05/31/21 albuterol sulfate 90 mcg/actuation 2 puff inhalation Q4-5H PRN 05/31/21 05/31/21 aerosol inhaler Wheezing diclofenac sodium 50 mg 50 mg PO DAILY 05/31/21 05/31/21 tablet,delayed release pantoprazole 40 mg tablet,delayed 40 mg PO BID 05/31/21 05/31/21 release Allergies Allergy/AdvReac Type Severity Reaction Status Date / Time diazepam Allergy Severe Other Verified 12/18/21 10:31 aspirin Allergy Intermediate Rash Verified 12/18/21 10:31 NSAIDS (Non-Steroidal Allergy Intermediate Rash Verified 12/18/21 10:31 Anti-Inflamma erythromycin base Allergy Mild Unknown Verified 12/18/21 10:31 latex Allergy Mild Unknown Verified 12/18/21 10:31 butorphanol Allergy Unknown Unknown Verified 12/18/21 10:31 Cephalosporins Allergy Unknown Unknown Verified 12/18/21 10:31 fentanyl Allergy Unknown Rash Verified 12/18/21 10:31 ketorolac Allergy Unknown Unknown Verified 12/18/21 10:31 morphine Allergy Unknown Unknown Verified 12/18/21 10:31 nalbuphine Allergy Unknown Unknown Verified 07/14/21 05:52 orphenadrine Allergy Unknown Unknown Verified 07/14/21 05:52 Review of Systems Review of Systems: All systems reviewed & are unremarkable except as noted in HPI and below Constitutional: Constitutional: Denies chills and Denies fever(s) Cardiovascular: Cardiovascular: Denies chest pain and Denies rapid heart rate Gastrointestinal: Gastrointestinal: Denies abdominal pain, Denies diarrhea and Reports nausea Musculoskeletal: Musculoskeletal: Reports myalgias, Denies arthralgias and Denies joint swelling Integumentary/Breasts: Skin/Breast: Denies rash, Denies skin pain and Denies sores Hematologic/Lymphatic: Hematologic/Lymphatic: Denies easy bleeding and Reports lymphadenopathy PMFSH Past Medical History Medical History (Updated 01/07/22 @ 03:18 by Shawn Trammell MD) History of gout History of hyperlipidemia History of hypertension Type 2 diabetes mellitus Surgical History Surgical History Hx of cholecystectomy Family History Family History Other Diabetes mellitus Family history of malignant neoplasm Hypertension Social History Social History Smoking status: Never smoker Alcohol intake: never Substance use: current Substance use type: marijuana Other substance usage details: daily Gender identity (if verbalized by the patient): Male Spiritual care concerns: No Exam Narrative: GENERAL: Well-appearing, well-nourished, and in no acute distress. HEAD: Normocephalic, atraumatic. CHEST: Clear to auscultation. No respiratory distress. HEART: Regular rate and rhythm. Normal peripheral pulses. EXTREMITIES: Normal range of motion. No edema
[2022-01-07 03:34] VITALS: BP 163/92; PULSE 76; RESP 15; O2SAT 98
== END 2022-01-07 03:38 | disposition home or self-care (01) ==
PROVIDERS: Emergency Provider Emergency Medicine; PCP Family Medicine
DX: R59.0 Localized enlarged lymph nodes (principal); I10 Essential (primary) hypertension; E78.5 Hyperlipidemia, unspecified; E11.9 Type 2 diabetes mellitus without complications; M10.9 Gout, unspecified; Z79.51 Long term (current) use of inhaled steroids; F12.90 Cannabis use, unspecified, uncomplicated
CPT/HCPCS: 99283; A9270

== ENCOUNTER 2022-01-27 11:49 | Emergency (ER) | payer OTHER, SELFPAY ==
--- NOTE | ~2022-01-27 | XR_ITS ---
EXAMINATION: XR thoracic spine 3V DATE: 01/27/2022 14:53 INDICATION: Thoracic back pain. TECHNIQUE: 3 views of thoracic spine on 5 radiographs were obtained. COMPARISON: Chest CT 07/14/21, CT lumbar spine 12/18/21 FINDINGS: Bone alignment is normal. There is mild chronic anterior wedging of T8-T11 vertebral bodies . There is mildly decreased disc height at T9-T10. There are endplate osteophytes at most levels. IMPRESSION: 1. Mild thoracic spondylosis. Reviewed, dictated and finalized at location A.
[2022-01-27 11:57] VITALS: BP 158/68; PULSE 83; RESP 18; TEMP 36.4; O2SAT 100
--- NOTE | 2022-01-27 13:19 | PC.NURSE ---
patient walking around waiting room without difficulty and in no distress.
[2022-01-27] MEDS: HYDROcodone/acetaminophen (*CRX) 5-325 MG TABLET 1 TAB PO (14:24)
--- NOTE | 2022-01-27 14:35 | ED.BACK ---
HPI - Back Pain/Injury General Chief Complaint: Back Pain/Injury <SERGE Mai Last Filed: 01/27/22 18:21> Stated Complaint: lower back pain <SERGE Mai Last Filed: 01/27/22 18:21> Time Seen by Provider: 01/27/22 14:02 <SERGE Mai Last Filed: 01/27/22 18:21> History of Present Illness HPI Narrative: Patient is a 56-year-old male well-known to this facility with a history of chronic low back pain here for evaluation of mid back pain for the past several hours. Patient states that he was getting out of bed when he noticed a pop in his back, states that T12 slid out of place . He is requesting 2 mg of Dilaudid IM for his pain. He tells me that he is allergic to every other pain medicine. Has not tried any pain meds prior to arrival. He is in the process of getting established with a pain management doctor. No numbness or tingling in the groin or saddle region, fevers or chills, incontinence or retention of bowel or bladder. <SERGE Mai Last Filed: 01/27/22 18:21> Related Data Home Medications: Home Medications Medication Instructions Recorded Confirmed allopurinol 300 mg tablet 300 mg PO HS 08/06/19 05/31/21 atorvastatin 80 mg tablet 80 mg PO HS 08/06/19 05/31/21 citalopram 20 mg tablet 20 mg PO DAILY 08/06/19 05/31/21 dicyclomine 10 mg capsule 10 mg PO BID PRN Abdominal 08/06/19 05/31/21 Discomfort lisinopril 20 mg tablet 20 mg PO DAILY 08/06/19 05/31/21 albuterol sulfate 90 mcg/actuation 2 puff inhalation Q4-5H PRN 05/31/21 05/31/21 aerosol inhaler Wheezing diclofenac sodium 50 mg 50 mg PO DAILY 05/31/21 05/31/21 tablet,delayed release pantoprazole 40 mg tablet,delayed 40 mg PO BID 05/31/21 05/31/21 release <SERGE Mai Last Filed: 01/27/22 18:21> Allergies/Adverse Reactions: Allergies Allergy/AdvReac Type Severity Reaction Status Date / Time diazepam Allergy Severe Other Verified 12/18/21 10:31 aspirin Allergy Intermediate Rash Verified 12/18/21 10:31 NSAIDS (Non-Steroidal Allergy Intermediate Rash Verified 12/18/21 10:31 Anti-Inflamma erythromycin base Allergy Mild Unknown Verified 12/18/21 10:31 latex Allergy Mild Unknown Verified 12/18/21 10:31 butorphanol Allergy Unknown Unknown Verified 12/18/21 10:31 Cephalosporins Allergy Unknown Unknown Verified 12/18/21 10:31 fentanyl Allergy Unknown Rash Verified 12/18/21 10:31 ketorolac Allergy Unknown Unknown Verified 12/18/21 10:31 morphine Allergy Unknown Unknown Verified 12/18/21 10:31 nalbuphine Allergy Unknown Unknown Verified 07/14/21 05:52 orphenadrine Allergy Unknown Unknown Verified 07/14/21 05:52 <SERGE Mai Last Filed: 01/27/22 18:21> Review of Systems Review of Systems: Gen.: Denies fevers or chills Eyes: Denies eye pain or visual change ENT: Denies congestion Respiratory: Denies shortness of breath or cough CV: Denies chest pain or palpitations GI: Denies abdominal pain nausea, emesis or diarrhea denies burning, urgency, frequency or hematuria Musculoskeletal: Reports back pain. Neuro: Denies numbness, tingling, weakness or focal weakness Skin: Denies rash Except as documented, all other systems reviewed and negative <SERGE Mia Last Filed: 01/27/22 18:21> [facility] Past Medical History Medical History: Medical History (Updated 02/10/22 @ 00:00 by Background Daemon) History of gout History of hyperlipidemia History of hypertension Type 2 diabetes mellitus <SERGE Mai Last Filed: 01/27/22 18:21> Surgical History Surgical History: Surgical History Hx of cholecystectomy <SERGE Mai Last Filed: 01/27/22 18:21> Family History Family History: Family History Other Diabetes mellitus Family hist
[2022-01-27 16:14] VITALS: BP 156/96; PULSE 87; RESP 18; O2SAT 98
== END 2022-01-27 16:16 | disposition home or self-care (01) ==
LOC: ANHED 14:49
PROVIDERS: Emergency Provider Emergency Medicine; PCP Family Medicine
DX: G89.29 Other chronic pain (principal); M54.50 Low back pain, unspecified; E78.5 Hyperlipidemia, unspecified; I10 Essential (primary) hypertension; E11.9 Type 2 diabetes mellitus without complications
CPT/HCPCS: 72072; 99283; A9270

== ENCOUNTER 2022-02-09 15:06 | Emergency (ER) | payer OTHER, SELFPAY ==
--- NOTE | ~2022-02-09 | CT_ITS ---
EXAMINATION: CT abdomen pelvis w con INDICATION: Left-sided abdominal pain TECHNIQUE: Computed tomographic images of the abdomen and pelvis were obtained after the administrati on of 100 cc of Omnipaque 350 intravenous contrast. The dose-length product (DLP) was 1625.33 mGy-cm. Automated exposure control and iterative reconstruction technique were employed. COMPARISON: 08/07/2019 FINDINGS: There is a stable 4 mm nodule of the right lower lobe. There is a 6 mm groundglass nodule o f the right middle lobe. The heart size is normal. The gallbladder is surgically absent. The liver, s pleen pancreas, and adrenal glands are normal. The kidneys are unremarkable. There is mild bilateral inguinal, left common iliac chain, and left external iliac chain lymphadenopathy. There is moderate l umbar spondylosis. IMPRESSION: 1. No CT correlate for the patient's symptoms. 2. Mild bilateral inguinal and left pelvic lymphadenopathy of unclear etiology. Reviewed, dictated and finalized at location F. [employer]
[2022-02-09 15:11] VITALS: BP 156/100; PULSE 86; RESP 18; TEMP 36.4; O2SAT 100
[2022-02-09 15:28] LABS: Basophils Percent Auto 0.5 % (0.2-1.2); Eosinophils Absolute Auto 0.2 K/mm3 (0-0.3); Eosinophils Percent Auto 3.9 % (0-4.4); Hematocrit 41.2 % (42.0-52.0); Hemoglobin 12.8 g/dL (14.0-18.0); Immature Granulocyte Absolute 0.02 K/mm3 (0.00-0.031); Immature Granulocyte Percent A 0.4 % (0-0.5); Lymphocytes Absolute Auto 1.07 K/mm3 (0.9-3.2); Lymphocytes Percent Auto 18.9 % (18.3-44.2); Mean Corpuscular HGB Conc 31.1 g/dl (32-36); Mean Corpuscular Hemoglobin 25.2 pg (26-34); Mean Corpuscular Volume 81.3 fl (80-100); Mean Platelet Volume 9.6 fl (7.4-10.4); Monocytes Absolute Auto 0.3 K/mm3 (0.1-0.6); Monocytes Percent Auto 5.5 % (2.6-8.5); Neutrophils Percent Auto 70.8 % (45.5-73.1); Platelet Count Result 273 k/mm3 (150-375); Red Blood Count 5.07 M/mm3 (4.6-6.20); Red Cell Distribution Width 14.1 % (11.5-14.5); White Blood Count 5.7 K/mm3 (4.5-10.0)
[2022-02-09 15:39] LABS: Alanine Aminotransferase 20 U/L (6-50); Albumin Level 4.2 g/dL (3.5-5.1); Alkaline Phosphatase 81 U/L (38-126); Anion Gap 15 mmol/L (8-16); Aspartate Amino Transferase 20 U/L (17-59); Bilirubin,Total 0.8 mg/dL (0.2-1.3); Blood Urea Nitrogen 16 mg/dL (9-20); Calcium 8.7 mg/dL (8.4-10.2); Carbon Dioxide 27 mmol/L (22-30); Chloride 93 mmol/L (98-107); Estimated CRCL calculation 164 ml/min; Estimated Glomerular Filt Rate > 60; Glucose 310 mg/dL (65-110); Lipase 143 U/L (23-300); Potassium 3.7 mmol/L (3.4-5.0); Sodium 135 mmol/L (137-145)
[2022-02-09 19:20] LABS: Appearance Urine Clear (Clear); Bilirubin Urine Negative (Negative); Blood Urine Negative (Negative); Color Urine Yellow (Yellow); Glucose Urine UA 3+ mg/dL (Negative); Ketones Urine Negative (Negative); Leukocyte Esterase Ur Negative LEU/UL (Negative); Nitrate Urine Negative (Negative); Protein Urine Negative (Negative); Specific Grav Ur 1.015 (1.001-1.035); Urobilinogen Urine 0.2 mg/dL (<2.0)
--- NOTE | 2022-02-09 19:24 | ED.GENADULT ---
HPI - General Adult General Chief complaint: Abdominal Pain Stated complaint: abd pain Time Seen by Provider: 02/09/22 19:05 History of Present Illness HPI narrative: Patient 56-year-old gentleman who presents the emergency department with chief complaint of abdominal pain. Patient reports that he has been having discomfort in the left side of his abdomen near his spleen the patient states that he is supposed to see an nipple maker in the near future because he has some kind of infection in his lymph nodes. Patient also has history of diabetes and has poorly controlled blood sugars. The patient states that he has been seen at multiple different facilities around the area and decided to come to our facility today. Related Data Home Medications Medication Instructions Recorded Confirmed allopurinol 300 mg tablet 300 mg PO HS 08/06/19 05/31/21 atorvastatin 80 mg tablet 80 mg PO HS 08/06/19 05/31/21 citalopram 20 mg tablet 20 mg PO DAILY 08/06/19 05/31/21 dicyclomine 10 mg capsule 10 mg PO BID PRN Abdominal 08/06/19 05/31/21 Discomfort lisinopril 20 mg tablet 20 mg PO DAILY 08/06/19 05/31/21 albuterol sulfate 90 mcg/actuation 2 puff inhalation Q4-5H PRN 05/31/21 05/31/21 aerosol inhaler Wheezing diclofenac sodium 50 mg 50 mg PO DAILY 05/31/21 05/31/21 tablet,delayed release pantoprazole 40 mg tablet,delayed 40 mg PO BID 05/31/21 05/31/21 release Allergies Allergy/AdvReac Type Severity Reaction Status Date / Time diazepam Allergy Severe Other Verified 12/18/21 10:31 aspirin Allergy Intermediate Rash Verified 12/18/21 10:31 NSAIDS (Non-Steroidal Allergy Intermediate Rash Verified 12/18/21 10:31 Anti-Inflamma erythromycin base Allergy Mild Unknown Verified 12/18/21 10:31 latex Allergy Mild Unknown Verified 12/18/21 10:31 butorphanol Allergy Unknown Unknown Verified 12/18/21 10:31 Cephalosporins Allergy Unknown Unknown Verified 12/18/21 10:31 fentanyl Allergy Unknown Rash Verified 12/18/21 10:31 ketorolac Allergy Unknown Unknown Verified 12/18/21 10:31 morphine Allergy Unknown Unknown Verified 12/18/21 10:31 nalbuphine Allergy Unknown Unknown Verified 07/14/21 05:52 orphenadrine Allergy Unknown Unknown Verified 07/14/21 05:52 Review of Systems Review of Systems: A 10 system review of systems was completed on the patient and is negative except for what is stated in the HPI. Nursing and ancillary documentation was reviewed. [facility] Past Medical History Medical History (Updated 02/09/22 @ 19:28 by Dedrick Tang MD) History of gout History of hyperlipidemia History of hypertension Type 2 diabetes mellitus Surgical History Surgical History Hx of cholecystectomy Family History Family History Other Diabetes mellitus Family history of malignant neoplasm Hypertension Social History Social History Smoking status: Never smoker Alcohol intake: never Substance use: current Substance use type: marijuana Other substance usage details: daily Gender identity (if verbalized by the patient): Male Spiritual care concerns: No Exam Narrative: GENERAL: Well-appearing, well-nourished, and in no acute distress. Morbidly obese HEAD: Normocephalic, atraumatic. EYES: PERRLA and EOMI. ENT: Nares clear, no rhinorrhea or epistaxis. Mucous membranes moist. NECK: Supple. CHEST: Clear to auscultation. No respiratory distress. HEART: Regular rate and rhythm. No murmur heard. Normal peripheral pulses. ABDOMEN: Soft, mild tenderness to palpation of the left upper quadrant, nondistended, normal active bowel sounds. EXTREMITIES: Normal range of motion. No edema. SKIN: Warm, dry, no rash. NEURO: No focal deficits. Alert and oriented x3. PSYCH: Normal mood and affect. Course Course Emergency Course: Allison
[2022-02-09 19:31] LABS: RBC Urine 0-2 /hpf (0-2); Squamous Epithelial Cell Urine Few /hpf (Few); WBC Urine 0-3 /hpf
[2022-02-09 19:34] LABS: Add Urine Microscopic? YES
[2022-02-09] MEDS: SODIUM CHLORIDE 0.9% IV 1,000 ML 999 ML IV CONT (20:10)
[2022-02-09 21:15] VITALS: RESP 18
== END 2022-02-09 21:15 | disposition home or self-care (01) ==
PROVIDERS: Emergency Medicine; Emergency Provider Emergency Medicine; PCP Family Medicine
DX: R10.12 Left upper quadrant pain (principal); E78.5 Hyperlipidemia, unspecified; I10 Essential (primary) hypertension; E11.9 Type 2 diabetes mellitus without complications
CPT/HCPCS: 36415; 74177; 80053; 81001; 83690; 85025; 96365; 99284; J0131; J7030; Q9967

== ENCOUNTER 2022-07-03 23:05 | Emergency (ER) | payer OTHER, SELFPAY ==
--- NOTE | ~2022-07-03 | XR_ITS ---
Left Knee Technique: AP, lateral, and oblique views were obtained. Clinical History: Pain COMPARISON: 01/16/2021 Findings: No fracture or dislocation is seen. Osseous alignment is anatomic. Moderate tricompartmenta l degenerative spurring is present. Soft tissues are unremarkable. No joint effusion is seen. Impression: No fracture or dislocation. Moderate tricompartmental degenerative spurring. Reviewed, dictated and finalized at location . Impression: No fracture or dislocation. Moderate tricompartmental degenerative spurring.
[2022-07-03 23:10] VITALS: BP 142/79; PULSE 93; RESP 18; TEMP 36.3; O2SAT 100
[2022-07-04 01:46] VITALS: BP 145/123; PULSE 91; RESP 20; TEMP 36.7; O2SAT 98
--- NOTE | 2022-07-04 01:57 | ED.GENADULT ---
HPI - General Adult General Chief complaint: Extremity Problem,Nontraumatic Stated complaint: left leg pain Time Seen by Provider: 07/04/22 01:36 History of Present Illness HPI narrative: a 57-year-old male with developmental delay presenting to ED with acute on chronic knee pain. Patient has been seen a sports medicine doctor would has been receiving injections. He has been having a gradual increase in his pain over the last several weeks. There have been no traumatic events. The patient denies fever chills warmth to the joint or swelling. He has been taking Tylenol and Robaxin pain and is not controlling his pain adequately. Patient has follow-up with his sports medicine physician. patient has no other complaints. Patient is requesting Dilaudid for pain. Related Data Home Medications Medication Instructions Recorded Confirmed allopurinol 300 mg tablet 300 mg PO HS 08/06/19 05/31/21 atorvastatin 80 mg tablet 80 mg PO HS 08/06/19 05/31/21 citalopram 20 mg tablet 20 mg PO DAILY 08/06/19 05/31/21 dicyclomine 10 mg capsule 10 mg PO BID PRN Abdominal 08/06/19 05/31/21 Discomfort lisinopril 20 mg tablet 20 mg PO DAILY 08/06/19 05/31/21 albuterol sulfate 90 mcg/actuation 2 puff inhalation Q4-5H PRN 05/31/21 05/31/21 aerosol inhaler Wheezing diclofenac sodium 50 mg 50 mg PO DAILY 05/31/21 05/31/21 tablet,delayed release pantoprazole 40 mg tablet,delayed 40 mg PO BID 05/31/21 05/31/21 release Allergies Allergy/AdvReac Type Severity Reaction Status Date / Time diazepam Allergy Severe Other Verified 07/04/22 01:45 aspirin Allergy Intermediate Rash Verified 07/04/22 01:45 NSAIDS (Non-Steroidal Allergy Intermediate Rash Verified 07/04/22 01:45 Anti-Inflamma erythromycin base Allergy Mild Unknown Verified 07/04/22 01:45 latex Allergy Mild Unknown Verified 07/04/22 01:45 butorphanol Allergy Unknown Unknown Verified 07/04/22 01:45 Cephalosporins Allergy Unknown Unknown Verified 07/04/22 01:45 fentanyl Allergy Unknown Rash Verified 07/04/22 01:45 ketorolac Allergy Unknown Unknown Verified 07/04/22 01:45 morphine Allergy Unknown Unknown Verified 07/04/22 01:45 nalbuphine Allergy Unknown Unknown Verified 07/14/21 05:52 orphenadrine Allergy Unknown Unknown Verified 07/14/21 05:52 [facility] Past Medical History Medical History (Updated 07/04/22 @ 02:12 by Marcus Ball MD) History of gout History of hyperlipidemia History of hypertension Type 2 diabetes mellitus Surgical History Surgical History Hx of cholecystectomy Family History Family History Other Diabetes mellitus Family history of malignant neoplasm Hypertension Social History Social History Smoking status: Never smoker Alcohol intake: never Substance use: current Substance use type: marijuana Other substance usage details: daily Gender identity (if verbalized by the patient): Male Spiritual care concerns: No Exam Narrative: APPEARANCE: No apparent distress. Head: atraumatic. EYES: EOMI, NOSE: Atraumatic NECK: Trachea midline RESPIRATORY: No increased rate of breathing CARDIOVASCULAR: RRR, ABDOMINAL: Non-distended MUSCULOSKELETAl: Focal exam of lower extremities revealed no obvious deformity. The joint is not warm to touch. It is not swollen. There are several old scars on his legs but nothing acute. There is no evidence of cellulitis or infection. Pulses are +2. Patient is able to ambulate NEURO: Alert. Moving 4/4 extremities SKIN:: Warm, dry. Normal color PSYCHIATRIC: Normal affect Course Vital Signs Vital signs: Vital Signs Temperature 97.3 F L 07/03/22 23:10 Pulse Rate 93 07/03/22 23:10 Respiratory Rate 18 07/03/22 23:10 Blood Pressure 142/79 H 07/03/22 23:10 Pulse Oximetry 100 07/03/22 23:10 Temperature 98.0 F
[2022-07-04] MEDS: HYDROcodone/acetaminophen (*CRX) 5-325 MG TABLET 2 TAB PO (02:56)
[2022-07-04 03:15] VITALS: BP 130/50; PULSE 90; RESP 17; O2SAT 99
== END 2022-07-04 03:15 | disposition home or self-care (01) ==
PROVIDERS: Emergency Provider Emergency Medicine; PCP Family Medicine
DX: M25.562 Pain in left knee (principal); G89.29 Other chronic pain; I10 Essential (primary) hypertension; E11.9 Type 2 diabetes mellitus without complications; E78.5 Hyperlipidemia, unspecified; M10.9 Gout, unspecified; Z90.49 Acquired absence of other specified parts of digestive tract
CPT/HCPCS: 73564; 99283; A9270

== ENCOUNTER 2022-07-19 17:35 | Emergency (ER) | payer OTHER, SELFPAY ==
--- NOTE | ~2022-07-19 | CT_ITS ---
EXAMINATION: CT abdomen pelvis w con DATE: 07/19/2022 20:28 INDICATION: RLQ pain TECHNIQUE: Computed tomography (CT) of the abdomen and pelvis was performed with 100 mL Omnipaque-350 intravenous contrast. Automated exposure control and iterative reconstruction technique were employe d. The dose-length product was 1738.94 mGy-cm. COMPARISON: 02/09/2022. FINDINGS: Lower thorax: Stable 4 mm right lower lobe nodule. Stable 6 mm groundglass right middle lobe nodule Liver: Normal. Biliary/Gallbladder: Gallbladder is absent. No bile duct dilation. Pancreas: No mass or duct dilation. Spleen: Normal. Adrenals:No mass. Kidneys: No mass, stone, or hydronephrosis. GI tract: No small or large bowel dilation. Appendix not visualized, likely surgically absent. Mesentery/Peritoneum: No ascites, mass, or free air. Retroperitoneum: No mass. Pelvis: Pelvic organs are within normal limits. Soft Tissues: Stable left inguinal and iliac chain lymphadenopathy. Bones: No acute osseous finding. IMPRESSION: No acute abdominopelvic process detected. Reviewed, dictated and finalized at location K.
--- NOTE | ~2022-07-19 | XR_ITS ---
EXAMINATION: [id number] Exam Date/Time: 07/19/2022 20:08 CDT HISTORY: Rib pain. fall 2 weeks ago Comparison: None available. RESULT: Lines, tubes, and devices: Cholecystectomy clips. Lungs and pleura: Streaky right basilar opacities, likely atelectasis. Cardiothymic silhouette: Stable. Other: No acute osseous or upper abdominal finding. IMPRESSION: No acute cardiopulmonary process. No acute osseous finding in the right ribs Reviewed, dictated and finalized at location K.
[2022-07-19 17:39] VITALS: BP 169/79; PULSE 100; RESP 16; TEMP 36.8; O2SAT 100
[2022-07-19] MEDS: SODIUM CHLORIDE 0.9% IV 1,000 ML 999 ML IV CONT (19:39)
[2022-07-19] MEDS: ONDANSETRON INJ 4 MG/2 ML VIAL 8 MG IV PUSH (19:40)
--- NOTE | 2022-07-19 19:40 | ED.GENADULT ---
HPI - General Adult General Chief complaint: Extremity Injury, Lower Stated complaint: Right side/abd pain Time Seen by Provider: 07/19/22 18:59 History of Present Illness HPI narrative: Patient has developmental delay. This is a 57-year-old male with history of chronic pain presenting ED with 2 complaints. Patient says that he has pain on his right ribcage that has been there since a fall 2 weeks ago. He has no shortness of breath, fevers productive cough or difficulty breathing. Patient's 2nd complaint is abdominal pain. He has pain in the right lower quadrant that is sharp/ burning, nonradiating 8 out 10 intensity and constant. He has experienced this in the past and believes it is due to adhesions from previous surgeries. There are no exacerbating or alleviating factors. He is nauseous but no vomiting. No fever chills. Last bowel movement was earlier today. Patient is requesting Dilaudid for his pain. Related Data Home Medications Medication Instructions Recorded Confirmed allopurinol 300 mg tablet 300 mg PO HS 08/06/19 05/31/21 atorvastatin 80 mg tablet 80 mg PO HS 08/06/19 05/31/21 citalopram 20 mg tablet 20 mg PO DAILY 08/06/19 05/31/21 dicyclomine 10 mg capsule 10 mg PO BID PRN Abdominal 08/06/19 05/31/21 Discomfort lisinopril 20 mg tablet 20 mg PO DAILY 08/06/19 05/31/21 albuterol sulfate 90 mcg/actuation 2 puff inhalation Q4-5H PRN 05/31/21 05/31/21 aerosol inhaler Wheezing diclofenac sodium 50 mg 50 mg PO DAILY 05/31/21 05/31/21 tablet,delayed release pantoprazole 40 mg tablet,delayed 40 mg PO BID 05/31/21 05/31/21 release Allergies Allergy/AdvReac Type Severity Reaction Status Date / Time diazepam Allergy Severe Other Verified 07/19/22 18:52 aspirin Allergy Intermediate Rash Verified 07/19/22 18:52 NSAIDS (Non-Steroidal Allergy Intermediate Rash Verified 07/19/22 18:52 Anti-Inflamma erythromycin base Allergy Mild Unknown Verified 07/19/22 18:52 latex Allergy Mild Unknown Verified 07/19/22 18:52 butorphanol Allergy Unknown Unknown Verified 07/19/22 18:52 Cephalosporins Allergy Unknown Unknown Verified 07/19/22 18:52 fentanyl Allergy Unknown Rash Verified 07/19/22 18:52 ketorolac Allergy Unknown Unknown Verified 07/19/22 18:52 morphine Allergy Unknown Unknown Verified 07/19/22 18:52 nalbuphine Allergy Unknown Unknown Verified 07/14/21 05:52 orphenadrine Allergy Unknown Unknown Verified 07/14/21 05:52 COUNTS INCLUDE 234 BEDS AT THE [facility] Past Medical History Medical History (Updated 07/19/22 @ 20:47 by Marcus Ball MD) History of gout History of hyperlipidemia History of hypertension Type 2 diabetes mellitus Surgical History Surgical History Hx of cholecystectomy Family History Family History Other Diabetes mellitus Family history of malignant neoplasm Hypertension Social History Social History Smoking status: Never smoker Alcohol intake: never Substance use: current Substance use type: marijuana Other substance usage details: daily Gender identity (if verbalized by the patient): Male Spiritual care concerns: No Exam Narrative: APPEARANCE: No apparent distress. patient is obese Head: atraumatic. EYES: EOMI, NOSE: Atraumatic NECK: Trachea midline RESPIRATORY: No increased rate of breathing, clear to auscultation CARDIOVASCULAR: RRR, ABDOMINAL: abdomen is morbidly obese, mild tenderness in the right lower quadrant with no guarding or rebound MUSCULOSKELETAl: tenderness palpation over the right ribcage NEURO: Alert. Moving 4/4 extremities SKIN:: Warm, dry. Normal color PSYCHIATRIC: Normal affect Course Vital Signs Vital signs: Vital Signs Temperature 98.2 F 07/19/22 17:39 Pulse Rate 100 07/19/22 17:39 Respiratory Rate 16 07/19/22 17:39 Blood Pressure 169/79 H 07/19/22 17:39 Pulse Oximetry 1
[2022-07-19 19:50] LABS: Basophils Percent Auto 0.5 % (0.2-1.2); Eosinophils Absolute Auto 0.2 K/mm3 (0-0.3); Eosinophils Percent Auto 2.8 % (0-4.4); Hematocrit 43.2 % (42.0-52.0); Hemoglobin 13.2 g/dL (14.0-18.0); Immature Granulocyte Absolute 0.03 K/mm3 (0.00-0.031); Immature Granulocyte Percent A 0.4 % (0-0.5); Lymphocytes Absolute Auto 1.52 K/mm3 (0.9-3.2); Lymphocytes Percent Auto 20.2 % (18.3-44.2); Mean Corpuscular HGB Conc 30.6 g/dl (32-36); Mean Corpuscular Hemoglobin 25.2 pg (26-34); Mean Corpuscular Volume 82.6 fl (80-100); Mean Platelet Volume 9.8 fl (7.4-10.4); Monocytes Absolute Auto 0.5 K/mm3 (0.1-0.6); Monocytes Percent Auto 6.1 % (2.6-8.5); Neutrophils Absolute Auto 5.3 K/mm3 (1.3-6.7); Platelet Count Result 244 k/mm3 (150-375); Red Blood Count 5.23 M/mm3 (4.6-6.20); Red Cell Distribution Width 14.2 % (11.5-14.5); White Blood Count 7.5 K/mm3 (4.5-10.0)
[2022-07-19 20:09] LABS: Alanine Aminotransferase 27 U/L (6-50); Albumin Level 4.2 g/dL (3.5-5.1); Alkaline Phosphatase 96 U/L (38-126); Anion Gap 10 mmol/L (8-16); Aspartate Amino Transferase 21 U/L (17-59); Blood Urea Nitrogen 18 mg/dL (9-20); Calcium 8.5 mg/dL (8.4-10.2); Carbon Dioxide 28 mmol/L (22-30); Chloride 96 mmol/L (98-107); Estimated Glomerular Filt Rate > 60; Glucose 230 mg/dL (65-110); Lipase 169 U/L (23-300); Magnesium 2.1 mg/dL (1.6-2.3); Potassium 4.1 mmol/L (3.4-5.0); Sodium 134 mmol/L (137-145)
--- NOTE | 2022-07-19 20:52 | PC.NURSE ---
patient leaving AMA. MD willingham aware. patient alert and oriented x4. ambulatory with steady gait.
== END 2022-07-19 20:51 | disposition home or self-care (01) ==
PROVIDERS: Emergency Provider Emergency Medicine; PCP Family Medicine
DX: R07.81 Pleurodynia (principal); Z65.8 Other specified problems related to psychosocial circumstances; Z76.5 Malingerer [conscious simulation]; E78.5 Hyperlipidemia, unspecified; I10 Essential (primary) hypertension; E11.9 Type 2 diabetes mellitus without complications
CPT/HCPCS: 36415; 71101; 74177; 80053; 83690; 83735; 85025; 96361; 96374; 99284; J2405; J7030; Q9967

== ENCOUNTER 2023-06-01 01:06 | Emergency (ER) | payer OTHER, SELFPAY ==
[2023-06-01 01:09] VITALS: BP 154/80; PULSE 70; RESP 16; TEMP 36.4; O2SAT 99
[2023-06-01 02:16] VITALS: BP 165/53; PULSE 66; RESP 16; TEMP 36.4; O2SAT 100
[2023-06-01] MEDS: HYDROcodone/acetaminophen (*CRX) 5-325 MG TABLET 1 TAB PO (03:16)
[2023-06-01 04:21] LABS: Basophils Percent Auto 0.5 % (0.2-1.2); Eosinophils Absolute Auto 0.2 K/mm3 (0-0.3); Eosinophils Percent Auto 3.6 % (0-4.4); Hemoglobin 11.7 g/dL (14.0-18.0); Immature Granulocyte Absolute 0.02 K/mm3 (0.00-0.031); Immature Granulocyte Percent A 0.4 % (0-0.5); Lymphocytes Absolute Auto 1.05 K/mm3 (0.9-3.2); Lymphocytes Percent Auto 18.8 % (18.3-44.2); Mean Corpuscular HGB Conc 30.8 g/dl (32-36); Mean Corpuscular Hemoglobin 24.9 pg (26-34); Mean Platelet Volume 9.6 fl (7.4-10.4); Monocytes Absolute Auto 0.4 K/mm3 (0.1-0.6); Monocytes Percent Auto 7.7 % (2.6-8.5); Neutrophils Absolute Auto 3.9 K/mm3 (1.3-6.7); Platelet Count Result 260 k/mm3 (150-375); Red Blood Count 4.69 M/mm3 (4.6-6.20); Red Cell Distribution Width 14.6 % (11.5-14.5); White Blood Count 5.6 K/mm3 (4.5-10.0)
--- NOTE | 2023-06-01 04:21 | PC.NURSE ---
Patient's mother came up to nursing station and stated that the patient was still in pain. Notified EDP Dr. Adan
[2023-06-01 04:25] VITALS: BP 156/74; PULSE 66; RESP 16; O2SAT 100
[2023-06-01 04:33] LABS: Alanine Aminotransferase 21 U/L (6-50); Albumin Level 3.7 g/dL (3.5-5.1); Alkaline Phosphatase 68 U/L (38-126); Anion Gap 9 mmol/L (8-16); Aspartate Amino Transferase 26 U/L (17-59); Bilirubin,Total 0.9 mg/dL (0.2-1.3); Blood Urea Nitrogen 14 mg/dL (9-20); Calcium 8.8 mg/dL (8.4-10.2); Carbon Dioxide 27 mmol/L (22-30); Chloride 101 mmol/L (98-107); Estimated CRCL calculation 190 ml/min; Estimated Glomerular Filt Rate > 60; Glucose 122 mg/dL (65-110); Potassium 3.6 mmol/L (3.4-5.0); Sodium 137 mmol/L (137-145)
[2023-06-01] MEDS: FUROSEMIDE INJ 100 MG/10 ML VIAL 80 MG IV PUSH (04:42)
--- NOTE | 2023-06-01 04:47 | PC.NURSE ---
When nursing staff brought 80mg furosemide to the patient to medication administration the patient stated This won't work it never has . Patient was educated that the goal was to get excess fluid of the legs to reduce pressured and pain. Patient still states It never works . Patient also stated that he was ready to go and that he would be more comfortable at home than here . Notified EDP Dr. Adan.
--- NOTE | 2023-06-01 04:53 | ED.EXTPRO ---
HPI - Extremity Problem General Chief complaint: Extremity Problem,Nontraumatic Stated complaint: leg swelling Time Seen by Provider: 06/01/23 02:35 History of Present Illness HPI Narrative: Patient is a 58-year-old male who presents to the emergency department this evening complaining of bilateral lower extremity edema. Patient admits that he does have history of fluid retention and does take Lasix at home. Patient has a medical chair at home that helps him elevate his bilateral lower extremity edema and is supposed to be wearing compression stocking, however, patient states that he does not wear them as they tend to fall off him. Patient was recently hospitalized and discharged from [facility] for cellulitis of his bilateral lower extremity. Patient had a lower extremity venous duplex performed there and patient states that it was negative for DVT. Patient denies any chest pain or shortness of breath, any nausea or vomiting Min any abdominal pain. Patient states that his lower extremity swelling has been causing him a lot of pain. Patient states that he has tried taking nerve pain including Lyrica and gabapentin, however, they mess with his balance. Patient states that the only pain medications that work for him are narcotics and he is currently requesting Dilaudid. There are no other modifying, alleviating, or precipitating factors at this time. Related Data Home Medications Medication Instructions Recorded Confirmed allopurinol 300 mg tablet 300 mg PO HS 08/06/19 05/31/21 atorvastatin 80 mg tablet 80 mg PO HS 08/06/19 05/31/21 citalopram 20 mg tablet 20 mg PO DAILY 08/06/19 05/31/21 dicyclomine 10 mg capsule 10 mg PO BID PRN Abdominal 08/06/19 05/31/21 Discomfort lisinopril 20 mg tablet 20 mg PO DAILY 08/06/19 05/31/21 albuterol sulfate 90 mcg/actuation 2 puff inhalation Q4-5H PRN 05/31/21 05/31/21 aerosol inhaler Wheezing diclofenac sodium 50 mg 50 mg PO DAILY 05/31/21 05/31/21 tablet,delayed release pantoprazole 40 mg tablet,delayed 40 mg PO BID 05/31/21 05/31/21 release Allergies Allergy/AdvReac Type Severity Reaction Status Date / Time diazepam Allergy Severe Other Verified 06/01/23 01:12 aspirin Allergy Intermediate Rash Verified 06/01/23 01:12 NSAIDS (Non-Steroidal Allergy Intermediate Rash Verified 06/01/23 01:12 Anti-Inflamma erythromycin base Allergy Mild Unknown Verified 06/01/23 01:12 latex Allergy Mild Unknown Verified 06/01/23 01:12 butorphanol Allergy Unknown Unknown Verified 06/01/23 01:12 Cephalosporins Allergy Unknown Unknown Verified 06/01/23 01:12 fentanyl Allergy Unknown Rash Verified 06/01/23 01:12 ketorolac Allergy Unknown Unknown Verified 06/01/23 01:12 morphine Allergy Unknown Unknown Verified 06/01/23 01:12 nalbuphine Allergy Unknown Unknown Verified 06/01/23 01:12 orphenadrine Allergy Unknown Unknown Verified 06/01/23 01:12 Review of Systems Review of Systems: All systems are reviewed and are negative unless stated otherwise in the HPI. [facility] Past Medical History Medical History History of gout History of hyperlipidemia History of hypertension Type 2 diabetes mellitus Surgical History Surgical History Hx of cholecystectomy Family History Family History Other Diabetes mellitus Family history of malignant neoplasm Hypertension Social History Social History Smoking status: Never smoker Alcohol intake: never Substance use: current Substance use type: marijuana Other substance usage details: daily Gender identity (if verbalized by the patient): Male Spiritual care concerns: No Exam Narrative: General: Alert, awake, afebrile, in no acute distress. HEENT: PERRL, no rhinorrhea, no post nasal drip, orophary
== END 2023-06-01 05:01 | disposition home or self-care (01) ==
PROVIDERS: Emergency Provider Emergency Medicine; PCP Family Medicine
DX: R60.0 Localized edema (principal); E78.5 Hyperlipidemia, unspecified; I10 Essential (primary) hypertension; E11.9 Type 2 diabetes mellitus without complications; Z79.899 Other long term (current) drug therapy
CPT/HCPCS: 36415; 80053; 85025; 96374; 99284; A9270; J1940